=== PATIENT | male | born 1950 | race Caucasian/White ===

== ENCOUNTER 2022-07-12 08:08 | Outpatient (CLI) | payer MEDICARE, OTHER, SELFPAY ==
--- OUTSIDE RECORDS SUMMARY | 2022-07-12 08:12 | XMS_ITS | Encounter Summary ---
:1950 Author Organization [facility] Address [address] [place] [address] Care Team Providers Name Role Phone Unavailable Primary Care Provider Unavailable Encounter Details Date Type Department Care Team Description 12/20/2020 Ancillary Procedure Department of Dental Specialties Social History Tobacco Use Types Packs/Day Years Used Date Smoking Tobacco: Never Smokeless Tobacco: Never Alcohol Habits Answer Date Recorded How often do you have a drink containing alcohol? Monthly or less 02/25/2021 How many drinks containing alcohol do you have on a Patient refused 02/25/2021 typical day when you are drinking? How often do you have six or more drinks on one Patient refu sed 02/25/2021 occasion? Comment: Not asked Social Isolation Answer Date Recorded In a typical week, how many times do you More than three vania es a week 02/25/2021 talk on the phone with family, friends, or neighbors? How often do you get together with friends More than three t imes a week 02/25/2021 or relatives? How often do you attend tenriism or Never 2020 roman catholic services? Do you belong to any clubs or No 02/25/2021 organizations such as tenriism groups, unions, fraternal or athletic groups, or school groups? How often do you attend meetings of the Never 02/25/2021 clubs or organizations you belong to? Are you now , , , 02/25/2021 , never or living with a partner? Physical Activity Answer Date Recorded On average, how many days per week do you engage in moderate 0 days 02/25/2021 to strenuous exercise (like walking fast, running, jogging, dancing, swimming, biking, or other activities that cause a light or heavy sweat)? On average, how many minutes do you engage in exercise at th is 150+ min 02/25/2021 level? Stress Answer Date Recorded Do you feel stress - tense, restless, nervous, or Only a lit tle 02/25/2021 anxious, or unable to sleep at night because your mind is troubled all the time - these days? Financial Resource Strain Answer Date Recorded How hard is it for you to pay for the very basics like Not h eugene at all 02/25/2021 food, housing, medical care, and heating? Food Insecurity Answer Date Recorded Within the past 12 months, you worried that your food would Never true 02/25/2021 run out before you got money to buy more. Within the past 12 months, the food you bought just didn't N ever true 02/25/2021 last and you didn't have money to get more. Transportation Needs Answer Date Recorded In the past 12 months, has lack of transportation kept you f rom No 02/25/2021 medical appointments or from getting medications? In the past 12 months, has lack of transportation kept you f rom No 02/25/2021 meetings, work, or getting things needed for daily living? Housing Stability Answer Date Recorded In the last 12 months, was there a time when you were not ab le No 02/25/2021 to pay the mortgage or rent on time? In the last 12 months, how many places have you lived? 1 02/25/2021 In the last 12 months, was there a time when you did not hav e a No 02/25/[address] or slept in a long term (including now)? Education Answer Date Recorded What is the highest level of school Master's degree (e.g., M A, MS, 11/02/2020 you have completed or the highest Rimma, MEd, JAVASCRIPT FRONT END DEVELOPER, KIMBERLYN) degree you have received? 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 documented in this encounter Results Face, Mouth-Dental Image Exam (12/20/2020 12:00 AM ENTRY LEVEL WEB DEVELOPER) Specimen (Source) Anatomical Location Collection Method / Collectio n Time Received Time / Laterality Volume Narrative IIMS - 12/21/2020 8:58 AM ENTRY LEVEL WEB DEVELOPER This order has been created and auto-finalized to support the import of images acquired without order. The clini milton documentation to support these images can be found on the encounter jeannine t produced images. Provider Not In System IMG NON RAD IMAGING PROCEDUR ES Performing Organization Address City/State/ZIP Code Phon e Number IIMS IIMS NA documented in this encounter Visit Diagnoses Not on filedocumented in this encounter
--- OUTSIDE RECORDS SUMMARY | 2022-07-12 08:12 | XMS_ITS | Encounter Summary ---
:1950 Author Organization [facility] Address [address] [place] [address] Care Team Providers Name Role Phone Unavailable Primary Care Provider Unavailable Reason for Visit Outpatient (Routine) - Closed Specialty Diagnoses / Procedures Referred By Contact Refer red To Contact Dentistry / Dental Diagnoses [facility]nea [facility] Tonya Hare M.D. [address] [place] [address] Referral ID Status Reason Start Date Expiration Date Visits Requ ested Visits Authorized [id number] Closed 09/20/2020 09/20/2021 1 1 Encounter Details Date Type Department Care Team Description 11/09/2020 Telemedicine Department of Dental Frandy, [place], Apnea S leep Specialties in [place], M.S. Obstructive [place], [place] [address] [facility] [address] [place] [phone] Social History Tobacco Use Types Packs/Day Years [...] or relatives? How often do you attend sikh or Never 2020 restoration services? Do you belong to any clubs or No 02/25/2021 organizations such as sikh groups, unions, fraternal or athletic groups, or [...] minutes do you engage in exercise at is 150+ min 02/25/2021 level? Stress Answer [...] place to sleep or slept in a fpc (including now)? Education Answer Date Recorded What is the highest level of school Master's degree (e.g., M A, MS, 11/02/2020 you have completed or the highest Rimma, MEd, REVENUE STAMPER, KIMBERLYN) degree you have received? 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 - 11/09/2020 3:00 PM CST Today's visit was completed as a video telemedicine visit, from the Department of Dental Specialties, [place], [place], by Dr. Courtney Wise, by contacting Mr. Huang at his home. SUBJECTIVE REASON FOR CONSULT Mr. Kishor Huang Jr. is a 70 y.o. male patient referred by Dr. Ralu Lynn from [facility], in consideration for the use of a Mandibular Advancement Device in the management of Obstructive Sleep Apnea. HISTORY OF PRESENT ILLNESS Mr. Huang was diagnosed with Obstructive Sleep Apnea following the evaluation and assessment with a Polysomnogram completed on 09/20/2017. . Mr. Huang is intolerant of CPAP due to not finding a comfortable mask. Mr. Huang reports comorbidities of Atrial Fibrillation. SLEEP HISTORY Based on the Polysomnogram, Mr. Huang's AHI was 13, RDI was 14.6, lowest oxygen desaturation was 88%. The reason for obtaining a sleep evaluation was snoring and concurrent health concerns. Mr. Huang has not undergone prior jaw surgery. Mr. Huang does not report difficulty breathing due to nasal obstruction, although does report a history of deviated septum diagnosis. DENTAL HISTORY The patient routinely visits a general dentist, Dr. Sanchez, every six months. Mr. Huang currently has no dental problems. Mr. Huang does not anticipate future dental work. Mr. Huang is aware of teeth clenching and teeth grinding habits. Mr. Huang reports to be using a mouth guard. Mr. Huang reports not gagging easily. The patient does not report a history of jaw pain and TMJ symptoms. ASSESSMENT / PLAN #1 Apnea Sleep Obstructive Based on the evaluation today, no overt subjective contra-indications for the use of Mandibular Advancement Device could be identified at this time. Therefore, I have requested Mr. Huang to return to for a face to face visit where-in a Comprehensive Oral Examination would be performed. After completion of the exam, if once again, no obvious contra-indications were identified, Diagnostic Radiographs, Digital Dental Impressions and Photographic records would be obtained to proceed with the fabrication of the Mandibular Advancement Device. During today's visit, the overall risks and benefits with the use of the Mandibular Advancement Device was reviewed. The device???s mechanism of action and the potential limits of its effectiveness were also reviewed. Regarding the risks associated with its use, temporary but the potential occurrence of temporomandibular joint disorder-like symptoms, tooth discomfort, dry mouth status and risk with exacerbating sub-clinical dental pathology were also discussed. The potential for malocclusion as a side effect from the device was also reviewed. Mr. Huang acknowledged an understanding of this. I visually demonstrated, using a sample device, the adjusting screw system, the customized device components and the mechanism of action for the Mandibular Advancement Device. After the completion of device placement and titration of the device adequately to the patient???s comfort and subjective improvement, Mr. Huang would be encouraged to return to the Center [facility] to consider a sleep test, per the Sleep Physician's discretion, to evaluate the effectiveness of the Mandibular Advancement Device. Additionally, today, I reviewed clinical notes from Tonya Maldonado M.D., Sleep Study report, and other relevant documents in his Electronic Health Record, as part of his visit. Total visit time 30 minutes. Counselling and coordinating care > 50% time. CLEANER OPERATOR documented in this encounter Plan of Treatment Not on filedocumented as of this encounter Visit Diagnoses Diagnosis Apnea Sleep Obstructive documented in this encounter
--- OUTSIDE RECORDS SUMMARY | 2022-07-12 08:12 | XMS_ITS | Encounter Summary ---
:1950 Author Organization [facility] Address [address] [place] [address] Care Team Providers Name Role Phone Unavailable Primary Care Provider Unavailable Reason for Referral Outpatient (Routine) - Closed Specialty Diagnoses / Procedures Referred By Contact Refer red To Contact Dermatology Diagnoses Obstructive Sleep Apnea Adult Courtney Wise D.D.S., M.S. [facility] Procedures Photography - Medical [address] [place] [address] Referral ID Status Reason Start Date Expiration Date Visits Requ ested Visits Authorized [id number] Closed 12/20/2020 12/20/2021 1 1 R VEHICLE REPRESENTATIVE Reason for Visit Reason Comments Dental Sleep Medicine Consultation PES Encounter Details Date Type Department Care Team Description 12/20/2020 Comprehensive Visit Department of Yareli Wise tinicki Sleep Apnea Adult (Primary Dx); Dental Specialties Courtney, Articular Disc Disorder Of Right Temporomandibular [facility] [address] [facility] [address] [facility] [phone] [facility] [phone] [place] [phone] Social History Tobacco Use Types Packs/Day Years [...] or relatives? How often do you attend scientology or Never 2020 muslim services? Do you belong to any clubs or No 02/25/2021 organizations such as scientology groups, unions, fraternal or athletic groups, or [...] place to sleep or slept in a care home (including now)? Education Answer Date Recorded What is the highest level of school Master's degree (e.g., M Devante, MS, 11/02/2020 you have completed or the highest Rimma, MEd, TIME RECORDER, KIMBERLYN) degree you have received? 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 - 12/20/2020 10:00 AM CST SUBJECTIVE REASON FOR CONSULT Mr. Kishor Huang Jr. is a 70 y.o. male patient referred by Dr. Raul Lynn from [facility], in consideration for the use of a Mandibular Advancement Device in the management of Obstructive Sleep Apnea. The reason for today's visit was to proceed with radiographic evaluation, comprehensive oral examination and dental impressions and bite registration for the fabrication of a Mandibular Advancement Device. OBJECTIVE PHYSICAL EXAMINATION Maximum interincisal opening of 45 mm, right excursion of 12 mm and left excursion of 12 mm. Teeth mobility is not noted. There is a normal range of motion to the temporomandibular joints. Palpation oftemporomandibular joints and muscles of mastication revealed no tenderness. Temporomandibular joint noise of reciprocal clicking was noted on the right side with extreme excursive jaw movements, which Mr. Huang reported to be only deliberately activated instead of during normal function. The neck exhibits negative lymphadenopathy. The intraoral soft tissue evaluation is negative for pathology, including buccal mucosa, gingiva, floor of mouth, dorsal, lateral, ventral surface of the tongue, hard and soft palates. Dentition reveals >8 teeth in the maxilla and >8 teeth in the mandible. Occlusal evaluation reveals stable bilateral posterior contacts and anterior normal relationshipwith 6 mm vertical and 5 mm horizontal overlap. Mallampati Class III palatal anatomy was noted with increased thickness of the alveolar ridge horacio palatal aspect of the ridge appearing like an exostoses, high and vaulted appearing hard palate, mucosal ridging along the lateral borders of the tongue. Teeth contact noted to be generalized. There is no evidence of caries requiring local dentist attention, and no evidence of periodontal concerns. Dental attrition is severe with significant anterior teeth wear.. DIAGNOSTICS A Panoramic radiograph taken by the local dentist and obtained on 10/18/2020, revealed bilateral adaptive remodeling of thecondylar contours, no bony pathology. Sinus appears clear. 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 I reviewed with Mr. Huang the mechanism by which the MAD reduces the risk for upper airway collapsibility by advancing the mandible. The risks and benefits with the use of the MAD were reviewed in detail. Specifically, the risk of developing self-limiting mild TMJ disorder, initially increased and later reduced salivary flow, the risk for teeth mobility, the risk with aggravating previously weakened dental restorations, the 30-40% probability of developing irreversible occlusal changes were reviewed. Concerns regarding the integrity of anterior restorations in #8, 9 region was reviewed and the MAD design would be accommodated that is most risk-aversive for the hindu's prognosis. After the initial fitting and establishing patient comfort with the MAD use, Mr. Huang would be encouraged to return to the Sleep Physician for the subjective and objective evaluation of the MAD's effectiveness in managing the symptoms of Obstructive Sleep Apnea. Mr. Huang will be directed to the Sleep Physician for further management of sleep-related breathing disorder. At the time of MAD insert, the method to self-titrate the device to optimal mandibular protrusion will be reviewed with Mr. Huang. Mr. Huang expressed an understanding of the content. The patient was ready to begin therapy, therefore maxillary and mandibular impressions were obtainedthis visit. Measurement of patient's protrusive range of motion was achieved with a Gauge -6 to +5. Gauge position 0. A SomnoDent [place] Flex will be ordered and inserted at next visit. R VEHICLE REPRESENTATIVE documented in this encounter Plan of Treatment Scheduled Orders Name Type Priority Associated Diagnoses Order S chedule Photography - Medical Procedures Routine Obstructive Sleep A pnea Expected: Adult 12/20/2020, Exp ires: 12/20/2023 documented as of this encounter Procedures Procedure Name Priority Date/Time Associated Diagnosis Comme nts IMPRESSION Routine 12/20/2020 10:00 AM MOTOR VEHICLE REPRESENTATIVE Obstructive Sleep Apnea Adult documented in this encounter Visit Diagnoses Diagnosis Obstructive Sleep Apnea Adult - Primary Articular Disc Disorder Of Right Temporo mandibular Joint documented in this encounter
--- OUTSIDE RECORDS SUMMARY | 2022-07-12 08:12 | XMS_ITS | Encounter Summary ---
:1950 Author Organization [facility] Address [address] [place] [address] Care Team Providers Name Role Phone Unavailable Primary Care Provider Unavailable Reason for Visit Reason Onset Date Comments Testing For Upper Respiratory Virus Symptoms 01/23/2021 Encounter Details Date Type Department Care Team Description 01/23/2021 External Outreach Department of Tony Rooney And Internal Medicine in [place] (Suspected) Exposure [place], [place] [address] To COVID-19 (Primary [address] [place], [place] Dx) [place] [phone] Social History Tobacco Use Types Packs/Day Years [...] or relatives? How often do you attend religious or Never 2020 moravian services? Do you belong to any clubs or No 02/25/2021 organizations such as religious groups, unions, fraternal or athletic groups, or [...] place to sleep or slept in a group home (including now)? Education Answer Date Recorded What is the highest level of school Master's degree (e.g., M Devante, MS, 11/02/2020 you have completed or the highest Rimma, MEd, CLEANING CREW MEMBER, KIMBERLYN) degree you have received? 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 - 01/23/2021 8:45 AM CDT Encounter created for symptomatic infectious disease screening with possible COVID, Influenza, RSV, and/or Group A Strep testing. documented in this encounter Plan of Treatment Not on filedocumented as of this encounter Visit Diagnoses Diagnosis Contact With And (Suspected) Exposure To COVID-19 - Primary documented in this encounter Additional Health Concerns Infection Onset Date Last Indicated Resolved Time COVID19 Pending 01/22/2021 01/23/2021 01/23/2021 8:37 PM CDT documented as of this encounter
--- OUTSIDE RECORDS SUMMARY | 2022-07-12 08:12 | XMS_ITS | Encounter Summary ---
:1950 Author Organization [facility] Address [address] [place] [address] Care Team Providers Name Role Phone Unavailable Primary Care Provider Unavailable Reason for Referral Outpatient (Routine) - Closed Specialty Diagnoses / Procedures Referred By Contact Refer red To Contact Sleep Medicine Courtney Wise D.D.S., Tonya Mclaughlin M.S. M.D. [address] [place] [address] [address] [place] [address] [place] [address] Phone: Fax: Referral ID Status Reason Start Date Expiration Date Visits Requ ested Visits Authorized [id number] Closed 03/01/2021 03/01/2022 1 1 Encounter Details Date Type Department Care Team Description 03/01/2021 Telemedicine Department of Dental Courtney Wise, Obstrkiran tive Sleep Specialties in [place], M.S. Apnea Adult (Primary [place], [place] [address] [facility] Dx) [address] [place] [phone] Social History Tobacco Use Types Packs/Day Years [...] or relatives? How often do you attend advent or Never 2020 faith services? Do you belong to any clubs or No 02/25/2021 organizations such as advent groups, unions, fraoDesk or athletic groups, or school groups? How [...] place to sleep or slept in a intermediate (including now)? Education Answer Date Recorded What is the highest level of school Master's degree (e.g., Isaiah Low, MS, 11/02/2020 you have completed or the highest Rimma, MEd, PIN STICKER, KIMBERLYN) degree you have received? 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 - 03/01/2021 1:00 PM CDT Today's visit was completed as a video telemedicine visit, from the Department of Dental Specialties, [place], [place], by Dr. Courtney Wise, by contacting Mr. Huang at his home. SUBJECTIVE Mr. Kishor Huang Jr. presented today for a review of the use of the Mandibular Advancement Device. He has advanced it by 4 mm overall since the time of initial insertion. The current setting is at85% of maximum protrusive range for patient. He does report moderate persistent snoring with the device. He reports that his sleep feels restful with the device in use. Mr. Huang does not report jaw pain, jaw joint noises and persistent occlusal changes as side effects with device use. He does not report functional limitations with respect to chewing, speech or swallowing with the device use. ASSESSMENT / PLAN #1 Obstructive Sleep Apnea Adult Based on the evaluation today additional titration is recommended by 1 mm. Following that adjustmenthowever, the device protrusive setting would be near his maximum protrusive range and therefore no further adjustment would be recommended beyond that setting. I encouraged Mr. Hunag to return to the [facility] to consider an objective assessment of the effectiveness of the device in managing her sleep-related breathing disorder. Based on therecommendations from the Center for [facility], additional titration may be considered. Total visit time 20 minutes, counselling and coordinating care > 50% time. documented in this encounter Plan of Treatment Scheduled Referrals Name Type Priority Associated Diagnoses Order S chedule Return to provider Outpatient Referral Routine Ex pected: in another 03/01/2021 specialty (Approximate), Expires: 03/01/2024 documented as of this encounter Procedures Procedure Name Priority Date/Time Associated Diagnosis Comme nts CHECK Routine 03/01/2021 1:00 PM CDT Obstructive Sleep Apnea Adult documented in this encounter Visit Diagnoses Diagnosis Obstructive Sleep Apnea Adult - Primary documented in this encounter
--- OUTSIDE RECORDS SUMMARY | 2022-07-12 08:12 | XMS_ITS | Encounter Summary ---
:1950 Author Organization [facility] Address [address] [place] [address] Care Team Providers Name Role Phone Unavailable Primary Care Provider Unavailable Encounter Details Date Type Department Care Team Description 07/08/2019 [facility] Remarco, Mckeon Fibrillation Atrial AND DERECK Trammell M.D. (HCC) (Primary Dx) [address] [facility] [address] [place] [address] [phone] Social History Tobacco Use Types Packs/Day Years Used Date Smoking Tobacco: Never Alcohol Habits Answer Date Recorded [...] or relatives? How often do you attend yazidi or Never 2020 mu-ism services? Do you belong to any clubs or No 02/25/2021 organizations such as yazidi groups, unions, fraternal or athletic groups, or [...] place to sleep or slept in a fci (including now)? 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
--- OUTSIDE RECORDS SUMMARY | 2022-07-12 08:12 | XMS_ITS | Encounter Summary ---
:1950 Author Organization [facility] Address [address] [place] [address] Care Team Providers Name Role Phone Unavailable Primary Care Provider Unavailable Encounter Details Date Type Department Care Team Description 01/23/2021 Lab Department of [facility] Courtney Wise, Contact With And (Suspected) Exposure To COVID-19; [facility] [place], [facility] Ayan, M.S . Encounter For Preprocedural Laboratory E xamination (COVID-19) [facility], in [place] [address] [place], [place] [address] [facility] [address] [place] [address] [facility] [phone] Social History Tobacco Use Types Packs/Day Years [...] do you attend scientology or Never 2020 scientology services? Do you belong to any clubs [...] place to sleep or slept in a longterm (including now)? Education Answer Date Recorded What is the highest level of school Master's degree (e.g., M A, MS, 11/02/2020 you have completed or the highest Rimma, MEd, [employer]ACH[employer], KIMBERLYN) degree you have received? 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 Preprocedural Laboratory Examination (COVID-19) documented in this encounter Results SARS Coronavirus-2 RNA, V Asymptomatic (01/23/2021 8:51 AM CDT) [facility] Method Time Signature SARS-CoV-2 Swab, 01/23/2021 MKTO Specimen Nasopharynx 8:36 PM CDT Source SARS CoV-2 Undetected Undetected 01/23/2021 MKTO RNA, TMA 8:36 PM CDT Comment: SARS-CoV-2 RNA absent. This result does not rule out COVID-19 in the patient, as the sensitivity of the test depends o n the timing of the specimen collection and the quality of the specim en. Result should be correlated with patient's history and clinical presentat ion. ----ADDITIONAL INFORMATION---- This molecular amplification test was pe rformed using the Aptima SARS-CoV-2 assay ([employer] on the Mister Bells tem under emergency use authorization (EUA) by the U.S. Food and Drug Administ ration. Fact sheets for this EUA assay can be fo und at the following links: For Healthcare Providers: https://www.fd a.gov/media/864390/download For Patients: https://www.fda.gov/media/ 062259/download Specimen Anatomical Collection Method Collection Time Receive d Time (Source) Location / / Volume Laterality Varies 01/23/2021 8:51 AM 3:31 (Nasopharynx) CDT PM CDT Courtney Wise D.D.S., M.S. LAB MICROBIOLOGY - GENERAL O RDERABLES Performing Organization Address City/State/ZIP Code Phon e Number [facility] [address] [place] [address] [place] [address] System in [place] [address] [facility] documented in this encounter Visit Diagnoses Diagnosis Contact With And (Suspected) Exposure To COVID-19 Encounter For Preprocedural Laboratory E xamination (COVID-19) documented in this encounter Additional Health Concerns Infection Onset Date Last Indicated Resolved Time COVID19 Pending 01/22/2021 01/23/2021 01/23/2021 8:37 PM CDT documented as of this encounter
--- OUTSIDE RECORDS SUMMARY | 2022-07-12 08:12 | XMS_ITS | Encounter Summary ---
:1950 Author Organization [facility] Address [address] [place] [address] Care Team Providers Name Role Phone Unavailable Primary Care Provider Unavailable Reason for Referral Outpatient (Routine) - Closed Specialty Diagnoses / Procedures Referred By Contact Refer red To Contact Dentistry / Dental Diagnoses Apnea Sleep Obstructive [facility] Specialties Tonya Hare M.D. [address] [place] [address] Referral ID Status Reason Start Date Expiration Date Visits Requ ested Visits Authorized [id number] Closed 09/20/2020 09/20/2021 1 1 PROJECT MANAGER Reason for Visit Outpatient (Routine) - Closed Specialty Diagnoses / Procedures Referred By Contact Refer red To Contact Sleep Medicine Diagnoses Apnea Sleep Obstructive Mike Higginbotham [place] M.D. [address] [place] [address] Referral ID Status Reason Start Date Expiration Date Visits Requ ested Visits Authorized [id number] Closed 07/20/2020 07/20/2021 1 1 Encounter Details Date Type Department Care Team Description 09/20/2020 Comprehensive Visit [facility] Mcmullen ea Sleep Obstructive (Primary Dx); Medicine in y, Tonya Hare, Atrial Fibrilla tion (HCC) [place], [place] [facility] [address] [place] [phone] Social History Tobacco Use Types Packs/Day Years [...] or relatives? How often do you attend hinduism or Never 2020 holiness services? Do you belong to any clubs or No 02/25/2021 organizations such as hinduism groups, unions, fraternal or athletic groups, or [...] or slept in a fpc (including now)? 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 - 09/20/2020 10:00 AM CST SUBJECTIVE REASON FOR CONSULT Obstructive sleep apnea HISTORY OF PRESENT ILLNESS Mr. Huang is a pleasant 70 y.o. male with a past medical history significant for obstructive sleepapnea with an AHI of 11, and AFib status post ablation on 06/14/2020 who is seen by request of Mike Higginbotham M.D. for obstructive sleep apnea. The history was obtained from the patient. He underwent a polysomnogram on 05/17/2008, which showed an AHI of 11. He was started on treatment with CPAP. We also have records from another sleep study in the hospital on 09/20/2017 at a body mass index of 29.7, which showed a total sleep time of 207 minutes with an AHI of 13. The AHI during REM was 60 and the supine AHI was 33.9. The nonsupine AHI was 6.5 when not in REM, but was elevated to 50.9 during REM sleep. The RDI was 14.6. 12.5 minutes were spent at an oxygen saturation of 88% or less. Echocardiogram from 02/04/2019 showed a preserved ejection fraction of 60-65% with a normal right ventricle. He typically goes to bed at 11:00 p.m. and wakes up between 8 and 930. He gets approximately 8 hoursof sleep per night. He does not nap. He does not have problems falling asleep at night. He wakes up once to use the restroom but can usually fall back to sleep. There are no symptoms of restless legs, no parasomnias and no dream enactment. [place] Sleepiness Scale is 3. He does not feel excessively sleepy during the daytime. He denies morning headache, has an occasional dry mouth or sore throat in the morning. He snores every night, it is somewhat loud, and it is louder on his back. He prefers to sleep on his back. He has been told that he stops breathing during sleep. He says that he does wake up with a snort, choking sensation or shortness of breath. He has a deviated septum, which causes some nasal congestion. He has not had surgery on the upper airway. He denies heartburn. He currently uses CPAP occasionally and is not happy with this therapy. His primary purpose in presenting to this appointment today is to see what other options there may be for the treatment of his sleep apnea. He does notice that he has some periodic fast heart rate at night and so he wonders if it may be beneficial totreat his sleep apnea from the standpoint of his atrial fib/flutter. Family history: Nothing pertinent Social history: 2 cups of coffee a day, no drugs, never smoker I reviewed a download from his machine from [phone]. He is set at a pressure of 7-12 cm H2O. Median pressure is 10.6 and 95th percentile pressure is 11.9. Median leak is 8.4 liters/minute witha 95th percentile leak of 13.2 liters/minute. Residual AHI is 5.1 with most of the events being obstructive apneas and hypopneas. Median daily usage is 7 hours 41 minutes. Use over the last 90 days hasbeen intermittent. The following portions of the patient's history were reviewed and updated as appropriate: allergies,current medications, family history, medical history, social history, surgical history and problem list. REVIEW OF SYSTEMS Constitutional: Negative for fatigue. ENT: Positive for sinus congestion. Respiratory: Positive for sleep disturbances due to breathing. Negative for dyspnea. Cardiovascular: Positive for swelling in the legs or feet. Negative for chest pain, pressure or tightness and rapid or fluttering heart beat. Neurological: Negative for excessive daytime sleepiness and headaches. Psychiatric/Behavioral: Positive for snores loudly, stop breathing, choking, or gasping while asleepand sleep disturbance. Negative for excessive daytime sleepiness/tiredness. OBJECTIVE PHYSICAL EXAM General Multi-System Examination (GME) Constitutional: General appearance no acute distress. Eyes: Conjunctivae and lids normal. Pupils and irises normal. Ears, Nose Mouth and Throat: Oropharynx demonstrates quite narrow lateral diameter, mildly narrowed AP diameter. Jaw position is Hanks 4. External inspection of ears and nose normal. Lips, teeth, and gums normal. Lymph: No abnormal lymphadenopathy in neck or supraclavicular region. Neck: Normal. Neck circumference 47 cm. Thyroid normal. Heart: Auscultation of heart normal. No ankle edema. No carotid artery bruits. Lungs: Respiratory effort normal. Auscultation of lungs normal. Musculoskeletal: Gait normal. Digits and nails normal. Mental: Judgement and insight normal. Orientation normal. Memory normal. Mood normal. ASSESSMENT / PLAN #1 Obstructive sleep apnea #2 Deviated nasal septum with chronic nasal congestion #3 Atrial fibrillation Although it seems that his sleep apnea is relatively well controlled on his current CPAP settings, he really does not like sleeping with CPAP. He has also tried many different masks and has not been able to find 1 that he is happy with despite trying all of the different mask styles. He said that he would prefer to treat his sleep apnea in some way that did not involve CPAP. We spent some time discussing the possibility of having surgery on his deviated nasal septum so thatit would perhaps be more comfortable to tolerate CPAP and we also talked about the different sleep surgeries including soft tissue surgery in the maxilla mandibular advancement surgery. We also discussed the mandibular advancement device, or the oral appliance, as an option. I showed him some pictures of each of these and discussed them in detail. For now, he prefers to see our sleep dentist in order to discover if the mandibular advancement device would potentially be a good option for treatment of his obstructive sleep apnea. I will leave follow-up with me open at this time. I let him know that if he goes through with obtaining the mandibular advancement device, that either I or his sleep doctor at home should perform some sort of follow-up testing to make sure that the sleep apnea is under good control. If he does not endup getting the oral appliance and would like to be referred to ENT surgery for consideration of surgical options to treat his sleep apnea, then I would provide him with that consultation. I gave him my card and asked him to contact me and let me know what he decides and if he needs follow-up with our sleep center. Tonya Maldonado MD Will Call Order Clerk Industrial Eng Pulmonary/Sleep Medicine #[id number] 45 minutes were spent in the care and coordination of this patient visit with greater than 50% spentin [id number] counseling. PATIENT EDUCATION Ready to learn, no apparent learning barriers were identified; learning preferences include listening. Explained diagnosis and treatment plan; patient expressed understanding of the content. PROJECT MANAGER documented in this encounter Plan of Treatment Scheduled Referrals Name Type Priority Associated Diagnoses Order S [facility] Dental Specialties - Outpatient Referral Routine Apnea Sleep Expected: Sleep medicine Obstructive 09/20/2020 consult (clinic) (Approximat e), Expires: 09/20/2023 documented as of this encounter Visit Diagnoses Diagnosis Apnea Sleep Obstructive - Primary Atrial Fibrillation (HCC) documented in this encounter
--- OUTSIDE RECORDS SUMMARY | 2022-07-12 08:12 | XMS_ITS | Encounter Summary ---
:1950 Author Organization [facility] Address [address] [place] [address] Care Team Providers Name Role Phone Unavailable Primary Care Provider Unavailable Encounter Details Date Type Department Care Team Description 08/10/2020 Clinical Communication Division of Pulmonary Georgi funes, Medicine in [place], Isaiah Moreira [place] [address] [address] [facility] [address] [place] [address] [phone] Social History Tobacco Use Types Packs/Day Years [...] or relatives? How often do you attend denominational or Never 2020 judaism services? Do you belong to any clubs or No 02/25/2021 organizations such as denominational groups, unions, fraternal or athletic groups, or [...] place to sleep or slept in a alf (including now)? 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 Is the patient requesting a COVID test only or other appointments? Other Appointments 2. Have you tested positive for COVID-19 in the last 30 days or do you have a pending COVID-19 test because you had symptoms? No, had a test at [facility] 2 weeks ago and it was negative 3. In the last 14 days have you had close contact with a lab confirmed positive case of COVID-19 (close contact is defined as a household case of COVID or being within 6 feet of a COVID-19 patient for more than 5 minutes or having direct contact with infectious secretions, e.g., being coughed on)? no 4. In the past 14 days, are any of the following symptoms new to you and not related to an existing health condition? a. Fever greater than or equal to 37.8 C (100.0 F)? no b. New symptoms (Specifically: headache, cough, shortness of breath, respiratory distress, sore throat, diarrhea, nausea, vomiting, chills and repeated shaking with chills, myalgia's (muscle aches), loss of smell, or change or loss of taste sensation)? no 5. Are you having NEW trouble breathing, worsening breathing, or feeling as though you're going to collapse when you stand or sit up? no 6. Have you tested positive for COVID in the last 90 days? no Route reply to: [facility] Scheduling Contact Number: [phone] documented in this encounter Plan of Treatment Not on filedocumented as of this encounter Visit Diagnoses Not on filedocumented in this encounter
--- OUTSIDE RECORDS SUMMARY | 2022-07-12 08:12 | XMS_ITS | Encounter Summary ---
:1950 Author Organization [facility] Address [address] [place] [address] Care Team Providers Name Role Phone Unavailable Primary Care Provider Unavailable Reason for Visit Reason Comments Dental Return Visit insert sleep appliance Encounter Details Date Type Department Care Team Description 01/26/2021 Office Visit Department of Dental Frandy, Courtney, Obstruc tive Sleep Specialties in [place]., M.S. Apnea Adult (Primary [place], [place] [address] [facility] Dx) [address] [place] [id number] [phone] Social History Tobacco Use Types Packs/Day Years [...] or relatives? How often do you attend latter day or Never 2020 jewish services? Do you belong to any clubs or No 02/25/2021 organizations such as latter day groups, unions, fraternal or athletic groups, or [...] place to sleep or slept in a jail (including now)? Education Answer Date Recorded What is the highest level of school Master's degree (e.g., Isaiah Low MS, 11/02/2020 you have completed or the highest Rimma, MEd, SOURCING INTERN, KIMBERLYN) degree you have received? 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 - 01/26/2021 2:00 PM CDT Images from the original note were not included. Dental Sleep Appliance Video Please review the following instructional video related to Advancing Your Viktor Telescopic Sleep Appliance: [email or web address]-[email or web address] For patient and family use only. Do not place link on websites or share publicly. Instructions for advancement of oral sleep appliances Please use the following chart to monitor the advancement of your SomnoDent [place] Flex appliance. Your appliance has already been advanced 4turns by your provider. On week 3 you will begin to advance your appliance according to the chart below. Please refer to the video that we have sent to you on how to advance your appliance. On week 4, you will have a video visit with your Dental Sleep Team at which time you will discuss your progress and how much further to advance Week Instructions 1 01/26/21 Get used to wearing your appliance. 2 02/02/2021 Wear your appliance all night long, every night. 3 02/09/2021 Start advancing your appliance by 8 turns on both sides. 4 02/16/2021 Video visit with Dental Sleep team Advance your appliance by 8 turns on both sides. You will have a video visit with your Dental Sleep Team. 5 02/23/2021 Do not advance anymore unless instructed to do so 6 03/02/2021 7 03/09/2021 8 03/16/2021 Patient Education Your Oral Appliance Therapy (OAT) Your appliance __??SomnoDent??? Classic __??SomnoDent??? Flex __??SomnoDent Viktor??? with telescopic arms _x_??SomnoDent Viktor??? Flex with telescopic arms __??SID??? with shims __??Silent Nite??? __??Other _x_??Elastics Elastics are rubber bands that attach the upper and lower portions of an appliance together. They can give more stability to the appliance. If you sleep on your back most of the time and your mouth tends to fall open, you likely will benefit from using elastics. You can attach elastics to the appliance when the appliance is in your mouth or out of your mouth. Use new elastics every few days or more often if they lose their elasticity. Tell your dental care team when you need more elastics. They can be mailed to you. Cleaning your teeth and appliance Before you wear your appliance, brush and floss your teeth. After you wake up: 1. Remove the appliance from your mouth. [place] your teeth. 2. Use a soft bristle toothbrush to brush your appliance with lukewarm water. You may use mild, liquid dish soap to clean your appliance. 3. Rinse your appliance with water. 4. Store your appliance in the case provided. One time a week, use a denture stitch cleaner that is safe for plastic and metal appliances to clean your appliance. For best results, take apart your appliance and then soak it in the denture stitch cleaner for five minutes. Placing your appliance 1. Put hot water inside the case holding your appliance. Let your appliance soak in it for 10 to 15 seconds. 2. Wash your hands. Dry them with a clean towel. 3. Remove your appliance from the case. 4. To put in your appliance, financial planning assistant front of a mirror until you are comfortable not using a mirror. 5. Place the upper and lower portions of your appliance in your mouth separately or together as instructed. 6. Center the appliance over your top front teeth. Always seat your top front teeth into the upper portion of your appliance first. 7. Slide your fingers back in your mouth to seat the back part of the appliance onto your upper teeth. 8. Bring your lower jaw forward to seat your lower front teeth into the lower portion of your appliance. 9. Slide your fingers back in your mouth to seat the back part of the appliance onto your bottom teeth. 10. Use your fingers to push up on your upper appliance and down on your lower appliance. Gently squeeze your teeth together to seat the appliance completely. Removing your appliance 1. Wash your hands. Dry them with a clean towel. 2. Always remove your lower appliance first. Place your fingertips or fingernails on both sides of your lower appliance, along your gum line. 3. Push the appliance upward to release it from your teeth. 4. Place your fingertips or fingernails on both sides of your upper appliance, along your gum line. 5. Pull the appliance downward to release it from your teeth. 6. After you remove your appliance from all of your teeth, remove the appliance from your mouth. 7. Clean and store your appliance. When you wear your appliance, it holds your lower jaw forward. That is what it is supposed to do. After you remove the appliance, your bite will feel ???off.?? This is normal. Your bite usually will return to normal within a few minutes to a few hours. If your bite feels ???off,?? try using your bite theater technician for 5 to 10 minutes. Please be aware that bite changes happen in many people who wear an oral appliance over a period of time. If you have questions about this, talk with a member of your dental care team. Getting used to your appliance For the first week, it is important to get used to wearing your appliance. Take it slow. Wear it fora short amount of time several times throughout the day or evening. Increase how long you wear it over the first week. Build up to wearing it so you feel comfortable wearing it all night by the end of the second week. In the beginning, you may have some tooth or jaw pain, more saliva, or a dry mouth when wearing yourappliance. This is normal and should get better as you get used to wearing your appliance. You mightalso feel tooth or jaw pain when you are not wearing the appliance. If you have concerns about this,talk with a member of your dental care team. When you are able to wear your appliance all night, it is important to determine if you notice an improvement in the symptoms you had before starting the appliance. Ask yourself: ?? Am I feeling rested? ?? Am I snoring? ?? Am I feeling sleepy during the day? Returning for follow-up care . After you wear your appliance for four weeks, you will have a video visit with your dental care teamto check your progress before you return to the sleep medicine area. You will be guided to return tothe sleep medicine area at eight weeks. You and your sleep medicine specialist will determine what testing you need to see whether your appliance is working the way it should. Bring your appliance and this information with you when you come for dental or sleep medicine appointments. Advancing your appliance You need to advance your appliance every week to move your lower jaw further forward to help with symptoms. __??SomnoDent Classic _x_??SomnoDent Flex Use the advancing harrison to turn the advancing box on each side of the appliance the same amount. 5 turns = 1/2 mm. Turn the harrison in the direction of the arrow. __??SomnoDent Viktor with telescopic arms __??SomnoDent Viktor Flex with telescopic arms Use the advancing harrison to turn the advancing barrel on both arms of the appliance the same amount. 4 turns = 1/2 mm. Turn the harrison in the direction of the arrow. __??SID with shims Add the same size zohreh to each elian of the lower appliance. Then attach the upper portion of the appliance to the lower portion. Shims range from 1 mm to 5 mm in size. __??Silent Nite Change to the same size arms, attaching lower and upper portions together. Arms decrease in length by 1 mm with each advancement. Contacting your dental care team Contact a member of your dental care team if: ?? The tissues in your mouth become irritated. ?? Your appliance becomes damaged. ?? You feel your appliance is not working for you. ?? You have questions or concerns about your appliance or this information. This material is for your education and information only. This content does not replace medical advice, diagnosis or treatment. New medical research may change this information. If you have questions about a medical condition, always talk with your health care provider. ? 2019 [facility] ([facility]). All rights reserved. [id number] documented in this encounter Progress Notes Courtney Wise D.D.S., M.S. - 01/26/2021 2:00 PM CDT SUBJECTIVE Valeri. Sim Huang Jr. returns for insertion of SomnoDent Viktor Flex Mandibular Advancement Device (MAD), for the management of obstructive sleep apnea. OBJECTIVE Sleep apnea appliance fitted to teeth adequately, patient demonstrated ability to place and remove. ASSESSMENT / PLAN #1 Obstructive Sleep Apnea Adult Today, the patient was provided a receipt for the Mandibular Advancement Device along with the device warranty document. Additionally, a copy of the Durable Medical Equipment Supplier Standards was also provided to the patient. Mr. Huang received instructions regarding placement and removal. The treatment was explained verbally and the placement and removal of the device was demonstrated hands-on with visual guidance on theadjustment mechanism on the device. Specific adjustments to activate forward positioning in separate intervals will be reviewed by my dental marketing administrative assistant at the time of the follow-up visit in two weeks. Mr. Huang is advised to use the appliance nightly over the next two weeks, gradually keeping the appliance in place throughout bedtime. He may begin by using it for short periods of time during the daytime, if unable to tolerate it right away at night time. Overall, the goal is to achieve maximum compliance with comfort of use, over the next two weeks. From its current protrusive position, the MAD may be advanced incrementally by 1mm each week to either a maximum of 2.5 mm or until symptom resolution is noted in-terms of subjective sleep quality, whichever out of the two is achieved first. Mr. Huang expressed an understanding of the content. documented in this encounter Plan of Treatment Not on filedocumented as of this encounter Procedures Procedure Name Priority Date/Time Associated Diagnosis Comme nts INSERT Routine 01/26/2021 2:00 PM CDT Obstructive Sleep Apnea Adult documented in this encounter Visit Diagnoses Diagnosis Obstructive Sleep Apnea Adult - Primary documented in this encounter
--- OUTSIDE RECORDS SUMMARY | 2022-07-12 08:12 | XMS_ITS | Clinical Summary ---
:1950 Author Organization [facility] [place] [address] Care Team Providers Name Role Phone Mike Higginbotham MD Primary Care Provider Allergies Active Allergy Reactions Severity Noted Date Comments Cefuroxime Rash 03/14/2010 Medications Medication Sig Dispensed Refills Start Date End Date Status simvastatin (ZOCOR) 10 Take 1 tablet by 0 10/03/2015 Active mg tablet mouth at bedtime. pantoprazole (PROTONIX) Take 40 mg by 6 09/12/2017 Active 40 mg delayed-release mouth once daily. tablet fluticasone (50 mcg per Daily as needed 0 Active actuation) nasal solution (FLONASE) clonazePAM (KLONOPIN) 1 Take 1 tablet by 0 0 Active mg tablet mouth once daily. [id number] Take by mouth. 0 05/03/2021 Active ng-bosw (Osteo Bi-Flex Triple Strength) 750 mg-644 mg- 30 mg-1 mg tab furosemide (LASIX) 20 Take 1 Tablet (20 0 05/03/2021 Active mg tablet mg) by mouth every morning. metoprolol succinate Take 1 Tablet (25 90 Tablet 3 05/31/2021 Active (Toprol XL) 25 mg mg) by mouth once Sustained-Release daily. tabletIndications: Atrial fibrillation, unspecified type (HC) metoprolol tartrate Take 12.5 mg by 0 09/13/2020 Active (LOPRESSOR) 25 mg mouth. tablet Active Problems Problem Noted Date Paroxysmal atrial fibrillation 07/17/2019 Atrial flutter 03/06/2019 JIN 05/17/2008 AHI-11, positional 01/09/2018 Lumbar facet arthropathy 02/01/2016 Bulging lumbar disc 10/03/2015 Lumbar spinal stenosis 10/03/2015 Lumbar radicular pain 10/03/2015 Tear of medial meniscus of knee 05/24/2009 Knee pain 05/23/2009 Resolved Problems Problem Noted Date Resolved Date Sleep Apnea AHI-11 05/17/2008 06/14/2008 01/09/2018 Encounters Date Type Specialty Care Team Description 07/02/2022 Telephone Bolivar Aragon MD [facility] Enrollment 07/02/2022 Orders Only Bolivar Aragon MD <No scans attached> 06/29/2022 Telephone Bolivar Aragon MD Concerns from Last 3 Months Immunizations Name Administration Dates Next Due Influenza A (H1N1), Inactivated (Age >=3 Years) 11/18/2009 Influenza, IIV3 (Age >=3 years) 11/18/2009, 10/01/2007 Tdap 05/30/2009 Family History Medical History Relation Name Comments Heart Disease Father aneurysm of kelly nary arteries Hypertension Mother Relation Name Status Comments Father Mother Social History Tobacco Use Types Packs/Day Years Used Date Never Smoker Smokeless Tobacco: Never Used Tobacco Cessation: Counseling Given: Yes Alcohol Use Standard Drinks/Week Comments Yes 0 (1 standard drink = 0.6 oz pure alcoho l) rare Sex Assigned at Date Recorded Not on file Obstetrics History Last Filed Vital Signs Vital Sign Reading Time Taken Comments Blood Pressure 119/74 06/07/2021 3:13 PM CDT Pulse 52 06/07/2021 3:10 PM CDT Temperature 36.8 ??C (98.2 ??F) 06/07/2021 3:10 PM CDT Respiratory Rate 16 07/15/2020 5:45 PM CDT Oxygen Saturation 98% 06/07/2021 3:10 PM CDT Inhaled Oxygen Concentration - - Weight 107.3 kg (236 lb 9.6 oz) 06/07/2021 3:10 PM CDT Height 182.5 cm (5' 11.85) 09/13/2020 8:51 AM INFORMATION SYSTEMS ARCHITECT Body Mass Index 32.22 09/13/2020 8:51 AM INFORMATION SYSTEMS ARCHITECT Plan of Treatment Upcoming Encounters Date Type Specialty Care Team Description 09/13/2022 Office Visit Valerie Aragon her MD [facility] [address] [place] [address] (Wo rk) Health Maintenance Due Date Last Done Comments COVID-19 vaccine series (#1) 1950 Depression screening for age 12+ 1962 Hepatitis C screening for age 18-79 1968 Colonoscopy through age 75 1995 Lipids for age 45-75 1995 Zoster (shingles) series for age 50+ 2000 (1 of 2) Medicare Wellness for age 65+ 2015 Pneumococcal series for age 65+ (1 - 2015 PCV) Tetanus booster 05/30/2019 05/30/2009 BMI (ht and wt on same day) for age 1109/13/2021 09/13/2020, 04/29/2020, 18+ 02/01/2016 Influenza for age 65+ 07/05/2022 11/18/2009, 11/18/2009, 10/01/2007 Tdap Completed 05/30/2009 Procedures Procedure Name Priority Date/Time Associated Diagnosis Comme nts EXTENDED HOLTER Routine 07/02/2022 10:51 AM CDT Bradycardia from Last 3 Months Results Not on filefrom Last 3 Months Insurance Payer Benefit Plan / Subscriber ID Effective Dates Phone Addre ss Type Group MEDICARE PART B MEDICARE PART B [id number] 2015-Present ATTN: CLAIMS - HB USE ONLY HB ONLY [address] [place] [address] MEDICA MR MEDICA PRIME [id number] 2019-Present [address] [address] [place] [address] MEDICA MEDICA PRIME [id number] 2019-Present [address] [address] [place] [address] Advance Directives Documents on File Type Date Recorded Patient Simulation Educator Explanati on Power of Overnight Houseperson 12/08/2015 12/08/2015 Healthcare Directive 12/08/2015 12/08/2015 Latest Code Status on File Code Status Date Activated Date Inactivated Comments Full Code 07/15/2020 1:27 PM 07/15/2020 8:08 PM Code Status Discussion: Not Discussed Care Teams Climbing Guide Relationship Specialty Start Date End Date Mike Higginbotham MD PCP - General 09/23/151999 [place] [address]
--- OUTSIDE RECORDS SUMMARY | 2022-07-12 08:12 | XMS_ITS | Encounter Summary ---
:1950 Author Organization [facility] Address [address] [place] [address] Care Team Providers Name Role Phone Unavailable Primary Care Provider Unavailable Encounter Details Date Type Department Care Team Description 01/27/2021 Orders Only [facility] Sa daija Crane M.D. [address] [place], [place] [phone] (Wo rk) Social History Tobacco Use Types Packs/Day Years [...] or relatives? How often do you attend muslim or Never 2020 anabaptism services? Do you belong to any clubs or No 02/25/2021 organizations such as muslim groups, unions, fraternal or athletic groups, or [...] place to sleep or slept in a detention (including now)? Education Answer Date Recorded What is the highest level of school Master's degree (e.g., M Devante, MS, 11/02/2020 you have completed or the highest Rimma, MEd, SALES SUPPORT ASSOCIATE, KIMBERLYN) degree you have received? 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
--- OUTSIDE RECORDS SUMMARY | 2022-07-12 08:12 | XMS_ITS | Clinical Summary ---
:1950 Author Organization [facility] Address [address] [place] [address] Care Team Providers Name Role Phone Unavailable Primary Care Provider Unavailable Source Comments Patient records contain information from all sites at [facility]. For routine questions regarding patient records, call [phone] during business hours, M-F 8:00 AM - 5:00 PM Central Time. Record requests for emergency care only can be directed to [phone] at any time.[facility] Allergies No known active allergies Medications Medication Sig Dispensed Refills Start Date End Date Status simvastatin (ZOCOR) 10 Take 10 mg by 0 10/03/2015 Active mg tablet mouth daily. dilTIAZem Take 120 mg by 0 09/13/2020 Acti ve (TIAZAC/TAZTIA XT) 120 mouth daily. mg ER capsule clonazePAM (KlonoPIN) 1 Take 1 mg by 0 09/13/2020 Active mg tablet mouth daily. metoprolol tartrate Take 12.5 mg by 0 09/13/2020 Active (LOPRESSOR) 25 mg mouth daily. tablet Active Problems Problem Noted Date Apnea Sleep Obstructive 09/20/2020 Atrial Fibrillation 09/20/2020 Social History Tobacco Use Types Packs/Day Years [...] or relatives? How often do you attend restorationism or Never 2020 roman catholic services? Do you belong to any clubs or No 02/25/2021 organizations such as restorationism groups, unions, fraternal or athletic groups, or [...] for the very basics like Not h uegene at all 02/25/2021 food, housing, medical care, [...] or slept in a fci (including now)? Education Answer Date Recorded What is the highest level of school Master's degree (e.g., M A, MS, 11/02/2020 you have completed or the highest Rimma, MEd, MEDIA MANAGER, KIMBERLYN) degree you have received? 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 Last Filed Vital Signs Vital Sign Reading Time Taken Comments Blood Pressure 118/70 09/20/2020 9:34 AM JAVA APPLICATION DEVELOPER Pulse 62 09/20/2020 9:34 AM JAVA APPLICATION DEVELOPER Temperature - - Respiratory Rate - - Oxygen Saturation - - Inhaled Oxygen Concentration - - Weight 110 kg (242 lb 1 oz) 09/20/2020 9:34 AM JAVA APPLICATION DEVELOPER Height 184.5 cm (6' 0.64) 09/20/2020 9:34 AM JAVA APPLICATION DEVELOPER Body Mass Index 32.26 09/20/2020 9:34 AM JAVA APPLICATION DEVELOPER Plan of Treatment Health Maintenance Due Date Last Done Comments CT Colonography 1950 Cologuard 1950 Colonoscopy 1950 Colorectal Cancer Screening 1950 FIT 1950 Hepatitis C Screening 1950 COVID-19 Vaccine (#1) 1950 Zoster Vaccines (2 of 3) 11/17/2012 09/22/2012 DTaP,Tdap,and Td Vaccines (2 - Td 05/30/2019 05/30/2009 or Tdap) Creatinine Level 07/15/2021 07/15/2020 Potassium Level 07/15/2021 07/15/2020 Sodium Level 07/15/2021 07/15/2020 Depression Screening (Annual 11/04/2021 PHQ-2) Fall Risk Screen (Annual) 11/04/2021 Influenza Vaccine (#1) 2022 08/01/2015, 09/22/2012, 08/03/2011, Additional history exists Fasting Glucose for Diabetes 07/15/2023 07/15/2020 Screening Pneumococcal vaccine (65+ years) Completed 01/19/2016, Insurance Payer Benefit Plan / Subscriber ID Effective Phone Address T ype Group Dates MEDICARE MEDICARE A AND [id number] 2015-Prese [address] [place] [address] MEDICA MEDICA PRIME [id number] 2019-Prese [phone] [address] [employer] [address] [place] [address]
--- OUTSIDE RECORDS SUMMARY | 2022-07-12 08:12 | XMS_ITS | Encounter Summary ---
:1950 Author Organization [facility] Address [address] [place] [address] Care Team Providers Name Role Phone Unavailable Primary Care Provider Unavailable Reason for Referral Outpatient (Routine) - Closed Specialty Diagnoses / Procedures Referred By Contact Refer red To Contact Sleep Medicine Diagnoses Apnea Sleep Obstructive Mike Higginbotham [place] M.D. [address] [place] [address] Referral ID Status Reason Start Date Expiration Date Visits Requ ested Visits Authorized [id number] Closed 07/20/2020 07/20/2021 1 1 Encounter Details Date Type Department Care Team Description 07/20/2020 [facility] Mike Higginbotham Apnea Sleep AND CLINICS Yeyo Trammell Obstructive (Primary [address] [facility] [address] [facility]) [place] [address] [place], [place] [phone] Social History Tobacco Use Types Packs/Day Years [...] or relatives? How often do you attend christianity or Never 2020 adventism services? Do you belong to any clubs or No 02/25/2021 organizations such as christianity groups, unions, fraternal or athletic groups, or [...] or slept in a jail (including now)? 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
[2022-07-12 10:17] LABS: Albumin* 4.5 g/dL (3.3-5.0); Chloride* 103 mmol/L (96-114); Potassium* 4.3 mmol/L (3.6-5.1); Sodium* 139 mmol/L (135-149)
[2022-07-12 10:19] LABS: Creatinine* 1.2 mg/dL (0.5-1.5); Estimated Glomerular Filt Rate 64 ml/min
[2022-07-12 10:20] LABS: Alanine Aminotransferase* 51 U/L (4-50); Alkaline Phosphatase* 79 U/L (40-150); Aspartate Amino Transferase* 50 U/L (12-35); Bilirubin Total* 0.7 mg/dL (0.1-1.5); Blood Urea Nitrogen* 23 mg/dL (7-30); Carbon Dioxide* 28 mmol/L (20-32); Glucose* 106 mg/dL (60-115); Total Protein* 7.1 g/dL (6.0-8.3)
== END 2022-07-12 08:09 | disposition home or self-care (01) ==
PROVIDERS: PCP Internal Medicine; Visit Provider Internal Medicine
DX: R60.9 Edema, unspecified (principal); R60.0 Localized edema; I48.92 Unspecified atrial flutter
CPT/HCPCS: 80053; 84443

== ENCOUNTER 2022-07-20 09:48 | Outpatient (CLI) | payer MEDICARE, OTHER, SELFPAY ==
--- OUTSIDE RECORDS SUMMARY | 2022-07-20 09:51 | XMS_ITS | Encounter Summary ---
:1950 Author Organization [facility] Address [address] [place] [address] Care Team Providers Name Role Phone Unavailable Primary Care Provider Unavailable Encounter Details Date Type Department Care Team Description 01/27/2021 Orders Only [facility] Sa daija Crane M.D. [address] [place], [place] [phone] (Wo rk) Social History [...] or relatives? How often do you attend sabianist or Never 2020 pentecostalism services? Do you belong to any clubs or No 02/25/2021 organizations such as sabianist groups, unions, fraternal or athletic groups, or [...] have completed or the highest Rimma, MEd, RESPIRATORY SCIENTIST, KIMBERLYN) degree you have received? 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
--- OUTSIDE RECORDS SUMMARY | 2022-07-20 09:51 | XMS_ITS | Encounter Summary ---
:1950 Author Organization [facility] Address [address] [place] [address] Care Team Providers Name Role Phone Unavailable [...] or relatives? How often do you attend zoroastrianism or Never 2020 scientology services? Do you belong to any clubs or No 02/25/2021 organizations such as zoroastrianism groups, unions, fraternal or athletic groups, or [...] have completed or the highest Rimma, MEd, SENIOR INFORMATION SYSTEMS ARCHITECT, KIMBERLYN) degree you have received? 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 documented in this encounter Results Face, Mouth-Dental Image Exam (12/20/2020 12:00 AM GLOBAL POSITION SYSTEM TECHNICIAN) Specimen (Source) Anatomical Location Collection Method / Collectio n Time Received Time / Laterality Volume Narrative IIMS - 12/21/2020 8:58 AM GLOBAL POSITION SYSTEM TECHNICIAN This order has been created and auto-finalized [...]
--- OUTSIDE RECORDS SUMMARY | 2022-07-20 09:51 | XMS_ITS | Encounter Summary ---
:1950 Author Organization [facility] Address [address] [place] [address] Care Team Providers Name Role Phone Unavailable Primary Care Provider Unavailable Reason for Referral Outpatient (Routine) - Closed Specialty Diagnoses / Procedures Referred By Contact Refer red To Contact Sleep Medicine Courtney Wise D.D.S., Tonya Mclaughlin M.S. M.D. [address] [place] [address] [address] [place] [address] [place] [address] Phone: Fax: Referral ID Status Reason Start Date Expiration Date Visits Requ ested Visits Authorized [id number] Closed 03/01/2021 03/01/2022 1 1 Encounter Details Date Type Department Care Team Description 03/01/2021 Telemedicine Department of Dental Courtney Wise, Obstrkiran tive Sleep Specialties in A[place], M.S. Apnea Adult (Primary [place], [place] [address] [facility] Dx) [address] [place] [phone] Social History Tobacco Use Types Packs/Day Years [...] or relatives? How often do you attend mosque or Never 2020 rastafarian services? Do you belong to any clubs or No 02/25/2021 organizations such as mosque groups, unions, fraYooLotto or athletic groups, or school groups? How [...] place to sleep or slept in a skilled nursing (including now)? Education Answer Date Recorded What is the highest level of school Master's degree (e.g., Isaiah Low, MS, 11/02/2020 you have completed or the highest Rimma, MEd, BEHAVIORAL CONSULTANT, KIMBERLYN) degree you have received? 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 - 03/01/2021 1:00 PM CDT Today's visit was completed as a video telemedicine visit, from the Department of Dental Specialties, [place], [place], by Dr. Courtney Wise, by contacting [...] recommended beyond that setting. I encouraged Mr. Huang to return to the [facility] [...]
--- OUTSIDE RECORDS SUMMARY | 2022-07-20 09:51 | XMS_ITS | Encounter Summary ---
:1950 Author Organization [facility] Address [address] [place] [address] Care Team Providers Name Role Phone Unavailable Primary Care Provider Unavailable Reason for Visit Reason Comments Dental Return Visit insert sleep appliance Encounter Details Date Type Department Care Team Description 01/26/2021 Office Visit Department of Dental Frandy, Courtney, Obstruc tive Sleep Specialties in [place]., M.S. Apnea Adult (Primary [place], [place] [address] [facility] Dx) [address] [place] [address] [phone] Social History Tobacco Use Types Packs/Day Years [...] or relatives? How often do you attend cheondoism or Never 2020 holiness services? Do you belong to any clubs or No 02/25/2021 organizations such as cheondoism groups, unions, fraternal or athletic groups, or [...] place to sleep or slept in a retirement (including now)? Education Answer Date Recorded What is the highest level of school Master's degree (e.g., Isaiah Low MS, 11/02/2020 you have completed or the highest Rimma, MEd, ASSISTANT EXECUTIVE HOUSEKEEPER, KIMBERLYN) degree you have received? 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 - 01/26/2021 2:00 PM CDT Images from the original note were not included. Dental Sleep Appliance Video Please review the following instructional video related to Advancing Your Viktor Telescopic Sleep Appliance: [email or web address] For patient and family use only. Do not place link on websites or share publicly. Instructions for advancement of oral sleep appliances Please use the following chart to monitor the advancement of your SomnoDent [place] Flex appliance. Your appliance has already been [...] 1. Remove the appliance from your mouth. Mcandrews your teeth. 2. Use a soft bristle toothbrush to brush your appliance with lukewarm water. You may use mild, liquid dish soap to clean your appliance. 3. Rinse your appliance with water. 4. Store your appliance in the case provided. One time a week, use a denture shirt cleaner that is safe for plastic and metal appliances to clean your appliance. For best results, take apart your appliance and then soak it in the denture shirt cleaner for five minutes. Placing your appliance 1. Put hot water inside the case holding your appliance. Let your appliance soak in it for 10 to 15 seconds. 2. Wash your hands. Dry them with a clean towel. 3. Remove your appliance from the case. 4. To put in your appliance, armhole feller handstitching machine front of a mirror until you are [...] bite feels ???off,?? try using your bite infertility medical assistant for 5 to 10 minutes. Please be [...] with your health care provider. ? 2019 [facility] ([facility]). All rights reserved. [id number] documented in this encounter Progress Notes Courtney [...] intervals will be reviewed by my dental photographer assistant at the time of the follow-up [...]
--- OUTSIDE RECORDS SUMMARY | 2022-07-20 09:51 | XMS_ITS | Clinical Summary ---
:1950 Author Organization [facility] [place] [address] Care Team Providers Name Role Phone Mike [...] 0 Active mg tablet mouth once daily. [id number]-ma Take by mouth. 0 05/03/2021 Active ng-bosw [...] 182.5 cm (5' 11.85) 09/13/2020 8:51 AM OUTREACH COORDINATOR Body Mass Index 32.22 09/13/2020 8:51 AM OUTREACH COORDINATOR Plan of Treatment Upcoming Encounters Date Type Specialty Care Team Description 09/13/2022 Office Visit Valerie Aragon her MD [facility] [address] [place] [address] [place] [address] (Wo rk) Health Maintenance Due Date Last [...] 07/05/2022 11/18/2009, 11/18/2009, 10/01/2007 Tdap Completed 05/30/2009 Results Not on filefrom Last 3 Months Insurance Payer Benefit Plan / Subscriber ID Effective Dates Phone Addre ss Type Group MEDICARE PART B MEDICARE PART B [id number] 2015-Present ATTN: CLAIMS - HB USE ONLY HB ONLY [address] [place] [address] MEDICA MR MEDICA PRIME [id number] 2019-Present [address] [address] [place] [address] MEDICA MEDICA PRIME [id number] 2019-Present [address] [address] [place] [address] Advance Directives Documents on File Type Date Recorded Patient Small Animal Veterinarian Explanati on Power of Mathematics Education Professor 12/08/2015 12/08/2015 Healthcare Directive 12/08/2015 12/08/2015 Latest Code Status on File Code Status Date Activated Date Inactivated Comments Full Code 07/15/2020 1:27 PM 07/15/2020 8:08 PM Code Status Discussion: Not Discussed Care Teams Latex Fashions Designer Relationship Specialty Start Date End Date Mike Higginbotham MD PCP - General 09/23/151999 [place] [address]
--- OUTSIDE RECORDS SUMMARY | 2022-07-20 09:51 | XMS_ITS | Encounter Summary ---
:1950 Author Organization [facility] Address [address] [place] [address] Care Team Providers Name Role Phone Unavailable Primary Care Provider Unavailable Reason for Visit Reason Onset Date Comments Testing For Upper Respiratory Virus Symptoms 01/23/2021 Encounter Details Date Type Department Care Team Description 01/23/2021 External Outreach Department of Tony Rooney And Internal Medicine in [place], D.OAlvina (Suspected) Exposure [place], [place] [address] To COVID-19 (Primary [address] [place], [place]) [place] [phone] Social History Tobacco Use [...] or relatives? How often do you attend yarsanism or Never 2020 episcopal services? Do you belong to any clubs or No 02/25/2021 organizations such as yarsanism groups, unions, fraternal or athletic groups, or [...] place to sleep or slept in a snf (including now)? Education Answer Date Recorded What is the highest level of school Master's degree (e.g., M Devante, MS, 11/02/2020 you have completed or the highest Rimma, MEd, PAYMENT COLLECTOR, KIMBERLYN) degree you have received? 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
--- OUTSIDE RECORDS SUMMARY | 2022-07-20 09:51 | XMS_ITS | Encounter Summary ---
:1950 Author Organization [facility] Address [address] [place] [address] Care Team Providers Name Role Phone Unavailable Primary Care Provider Unavailable Encounter Details Date Type Department Care Team Description 01/23/2021 Lab Department of [facility] Courtney Wise, Contact With And (Suspected) Exposure To COVID-19; [facility], [facility] Ayan, M.S . Encounter For Preprocedural Laboratory E xamination (COVID-19) [facility], in [place] [address] [address] [place], [place] [address] [facility] [address] [place] [address] [facility] [phone] Social History Tobacco Use Types Packs/Day Years [...] do you attend sikh or Never 2020 yarsani services? Do you belong to any clubs [...] completed or the highest Rimma, MEd, SENIOR TECHNICAL EDITOR, KIMBERLYN) degree you have received? 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 Food and Drug Administ ration. Fact sheets for this EUA assay can be fo und at the following links: For Healthcare Providers: https://www.fd a.gov/media/884813/download For Patients: https://www.fda.gov/media/ 000446/download Specimen Anatomical Collection Method Collection Time Receive d Time (Source) Location / / Volume Laterality Varies 01/23/2021 8:51 AM 3:31 (Nasopharynx) CDT PM CDT Courtney Wise D.D.S., M.S. LAB MICROBIOLOGY - GENERAL O RDERABLES Performing Organization Address City/State/ZIP Code Phon e Number [facility]- [address] [place] [address] [facility] [place] [address] System in [place] [address] [facility] documented in this encounter Visit Diagnoses Diagnosis Contact With And (Suspected) Exposure To COVID-19 Encounter For Preprocedural Laboratory E xamination (COVID-19) documented in this encounter Additional Health Concerns Infection Onset Date Last Indicated Resolved Time COVID19 Pending 01/22/2021 01/23/2021 01/23/2021 8:37 PM CDT documented as of this encounter
--- OUTSIDE RECORDS SUMMARY | 2022-07-20 09:51 | XMS_ITS | Clinical Summary ---
:1950 Author Organization [facility] Address [address] [place] [address] Care Team Providers Name Role Phone Unavailable Primary Care Provider Unavailable Source Comments Patient records contain information from all sites at [facility]. For routine questions regarding patient records, call [phone] during business hours, M-F 8:00 AM - 5:00 PM Central Time. Record requests for emergency care only can be directed to [phone] at any time.[facility] Allergies No known active allergies Medications Medication [...] or relatives? How often do you attend adventist or Never 2020 congregation services? Do you belong to any clubs or No 02/25/2021 organizations such as adventist groups, unions, fraternal or athletic groups, or [...] have completed or the highest Rimma, MEd, JIG HAND, KIMBERLYN) degree you have received? 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 Last Filed Vital Signs Vital Sign Reading Time Taken Comments Blood Pressure 118/70 09/20/2020 9:34 AM HABILITATION TRAINING SPECIALIST Pulse 62 09/20/2020 9:34 AM HABILITATION TRAINING SPECIALIST Temperature - - Respiratory Rate - - Oxygen Saturation - - Inhaled Oxygen Concentration - - Weight 110 kg (242 lb 1 oz) 09/20/2020 9:34 AM HABILITATION TRAINING SPECIALIST Height 184.5 cm (6' 0.64) 09/20/2020 9:34 AM HABILITATION TRAINING SPECIALIST Body Mass Index 32.26 09/20/2020 9:34 AM HABILITATION TRAINING SPECIALIST Plan of Treatment Health Maintenance Due Date [...] ype Group Dates MEDICARE MEDICARE A AND [id number] 2015-Prese [address] [place] [address] MEDICA MEDICA PRIME [id number] 2019-Prese [phone] [address] [place] [address]
--- OUTSIDE RECORDS SUMMARY | 2022-07-20 09:52 | XMS_ITS | Encounter Summary ---
:[address] [facility] Address [address] [place] [address] Care Team Providers Name Role Phone Unavailable Primary Care Provider Unavailable Encounter Details Date Type Department Care Team Description 08/10/2020 Clinical Communication Division of Pulmonary Georgi funes, Medicine in [place], Isaiah Moreira [place] [address] [address] [facility] [address] [place] [address] [phone] Social History Tobacco Use Types Packs/Day Years [...] do you attend denominational or Never 2020 amish services? Do you belong to any clubs [...] place to sleep or slept in a fdc (including now)? 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 Is the patient requesting a COVID test only or other appointments? Other Appointments 2. Have you tested positive for COVID-19 in the last 30 days or do you have a pending COVID-19 test because you had symptoms? No, had a test at [facility] 2 weeks ago and it [...] 90 days? no Route reply to: [facility] Scheduling Contact Number: [phone] documented in this encounter Plan of Treatment Not on filedocumented as of this encounter Visit Diagnoses Not on filedocumented in this encounter
--- OUTSIDE RECORDS SUMMARY | 2022-07-20 09:52 | XMS_ITS | Encounter Summary ---
:1950 Author Organization [facility] Address [address] [place] [address] Care Team Providers Name Role Phone Unavailable Primary Care Provider Unavailable Reason for Referral Outpatient (Routine) - Closed Specialty Diagnoses / Procedures Referred By Contact Refer red To Contact Dentistry / Dental Diagnoses Apnea Sleep Obstructive [facility] Specialties Tonya Hare M.D. 200 [place] [address] Referral ID Status Reason Start Date Expiration Date Visits Requ ested Visits Authorized [id number] Closed 09/20/2020 09/20/2021 1 1 E EMBALMER Reason for Visit Outpatient (Routine) - Closed Specialty Diagnoses / Procedures Referred By Contact Refer red To Contact Sleep Medicine Diagnoses Apnea Sleep Obstructive Mike Higginbotham [place] M.D. [address] [place] [address] Referral ID Status Reason Start Date Expiration Date Visits Requ ested Visits Authorized [id number] Closed 07/20/2020 07/20/2021 1 1 Encounter Details Date Type Department Care Team Description 09/20/2020 Comprehensive Visit [facility] Marshall Mcmullen ea Sleep Obstructive (Primary Dx); Medicine in y, Tonya Hare, Atrial Fibrilla tion (HCC) [place], [place] [facility] 200 [place] [phone] Social History Tobacco Use Types Packs/Day Years [...] you attend latter day or Never 2020 druze services? Do you belong to any clubs [...] place to sleep or slept in a chcf (including now)? 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 Holstein Sleepiness Scale is 3. He does not [...] reviewed a download from his machine from [phone]. He is set at a pressure of [...] with our sleep center. Tonya Maldonado MD Cashier And Waiter/Waitress Industrial Nurse Pulmonary/Sleep Medicine #[id number] 45 minutes were spent in the care and coordination of this patient visit with greater than 50% spentin ohhc-da-scen counseling. PATIENT EDUCATION Ready to learn, no apparent learning barriers were identified; learning preferences include listening. Explained diagnosis and treatment plan; patient expressed understanding of the content. E EMBALMER documented in this encounter Plan of Treatment Scheduled Referrals Name Type Priority Associated Diagnoses Order S [facility] Dental Specialties - Outpatient Referral Routine Apnea Sleep Expected: Sleep medicine Obstructive 09/20/2020 consult (clinic) (Approximat e), Expires: 09/20/2023 documented as of this encounter Visit Diagnoses Diagnosis Apnea Sleep Obstructive - Primary Atrial Fibrillation (HCC) documented in this encounter
--- OUTSIDE RECORDS SUMMARY | 2022-07-20 09:52 | XMS_ITS | Encounter Summary ---
:1950 Author Organization [facility] Address [address] [place] [address] Care Team Providers Name Role Phone Unavailable Primary Care Provider Unavailable Reason for Visit Outpatient (Routine) - Closed Specialty Diagnoses / Procedures Referred By Contact Refer red To Contact Dentistry / Dental Diagnoses Apnea Sleep Obstructive [facility] Specialties Tonya Hare M.D. [address] [place] [address] Referral ID Status Reason Start Date Expiration Date Visits Requ ested Visits Authorized [id number] Closed 09/20/2020 09/20/2021 1 1 Encounter Details Date Type Department Care Team Description 11/09/2020 Telemedicine Department of Dental Frandy, Courtney, Apnea S leep Specialties in [place], M.S. Obstructive [place], [place] [address] [facility] [address] [place] [phone] [phone] Social History Tobacco Use Types Packs/Day Years [...] many times do you More than three avnia es a week 02/25/2021 talk on the phone with family, friends, or neighbors? How often do you get together with friends More than three t imes a week 02/25/2021 or relatives? How often do you attend temple or Never 2020 mu-ism services? Do you belong to any clubs or No 02/25/2021 organizations such as temple groups, unions, fraternal or athletic groups, or [...] have completed or the highest Rimma, MEd, ACCIDENT INVESTIGATOR, KIMBERLYN) degree you have received? 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 - 11/09/2020 3:00 PM CST Today's visit was completed as a video telemedicine visit, from the Department of Dental Specialties, [place], [place], by Dr. Courtney Wise, by contacting Mr. Huang at his home. SUBJECTIVE REASON FOR CONSULT Mr. Kishor Huang Jr. is a 70 y.o. male patient referred by Dr. Raul Lynn from [facility], in consideration [...] Counselling and coordinating care > 50% time. LATORY NURSE documented in this encounter Plan of Treatment Not on filedocumented as of this encounter Visit Diagnoses Diagnosis Apnea Sleep Obstructive documented in this encounter
--- OUTSIDE RECORDS SUMMARY | 2022-07-20 09:52 | XMS_ITS | Encounter Summary ---
:1950 Author Organization [facility] Address [address] [place] [address] Care Team Providers Name Role Phone Unavailable Primary Care Provider Unavailable Reason for Referral Outpatient (Routine) - Closed Specialty Diagnoses / Procedures Referred By Contact Refer red To Contact Dermatology Diagnoses Obstructive Sleep Apnea Adult Courtney Wise D.D.S., M.S. [facility] Procedures Photography - Medical [address] [place] [address] Referral ID Status Reason Start Date Expiration Date Visits Requ ested Visits Authorized [id number] Closed 12/20/2020 12/20/2021 1 1 OR DEVOPS ENGINEER Reason for Visit Reason Comments Dental Sleep Medicine Consultation PES Encounter Details Date Type Department Care Team Description 12/20/2020 Comprehensive Visit Department of Yareli Wise tinicki Sleep Apnea Adult (Primary Dx); Dental Specialties Courtney, Articular Disc Disorder Of Right [facility] [address] [facility] [address] [facility] [address] [facility] [phone] [place] [phone] Social History Tobacco Use Types Packs/Day Years [...] or relatives? How often do you attend shinto or Never 2020 episcopal services? Do you belong to any clubs or No 02/25/2021 organizations such as shinto groups, unions, fraternal or athletic groups, or [...] place to sleep or slept in a custodial (including now)? Education Answer Date Recorded What is the highest level of school Master's degree (e.g., M Devante, MS, 11/02/2020 you have completed or the highest Rimma, MEd, INPATIENT PHARMACIST, KIMBERLYN) degree you have received? 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 - 12/20/2020 10:00 AM CST SUBJECTIVE REASON FOR CONSULT Mr. Kishor Huang Jr. is a 70 y.o. male patient referred by Dr. Raul Lynn from [facility] for Sleep Medicine, in consideration [...] accommodated that is most risk-aversive for the synagogue's prognosis. After the initial fitting and establishing [...] to +5. Gauge position 0. A SomnoDent [place] Flex will be ordered and inserted at next visit. 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
--- OUTSIDE RECORDS SUMMARY | 2022-07-20 09:52 | XMS_ITS | Encounter Summary ---
:1950 Author Organization [facility] Address [address] [place] [address] Care Team Providers Name Role Phone Unavailable Primary Care Provider Unavailable Encounter Details Date Type Department Care Team Description 07/08/2019 [facility] Remarco, Mckeon Fibrillation Atrial AND DERECK Trammell M.D. (HCC) (Primary Dx) 1999 [facility] [address] [place] [id number] [phone] Social History Tobacco Use Types Packs/Day Years [...] or relatives? How often do you attend catholic or Never 2020 gnosticist services? Do you belong to any clubs or No 02/25/2021 organizations such as catholic groups, unions, fraternal or athletic groups, or [...] place to sleep or slept in a correction (including now)? 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
--- OUTSIDE RECORDS SUMMARY | 2022-07-20 09:52 | XMS_ITS | Encounter Summary ---
:1950 Author Organization [facility] Address [address] [place] [id number] Care Team Providers Name Role Phone Unavailable Primary Care Provider Unavailable Reason for Referral Outpatient (Routine) - Closed Specialty Diagnoses / Procedures Referred By Contact Refer red To Contact Sleep Medicine Diagnoses Apnea Sleep Obstructive Mike Higginbotham [place] M.D. [address] [place] [address] Referral ID Status Reason Start Date Expiration Date Visits Requ ested Visits Authorized [id number] Closed 07/20/2020 07/20/2021 1 1 Encounter Details Date Type Department Care Team Description 07/20/2020 [facility] Mike Higginbotham Apnea Sleep AND CLINICS Yeyo Trammell Obstructive (Primary 1999 [facility] [address] [facility] [place]) [place] [address] [place] [phone] Social History Tobacco Use Types Packs/Day Years [...] or relatives? How often do you attend oriental orthodox or Never 2020 faith services? 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
== END 2022-07-20 09:49 | disposition home or self-care (01) ==
LOC: RAD 09:49
PROVIDERS: PCP Internal Medicine; Visit Provider Internal Medicine
DX: R60.9 Edema, unspecified (principal)
CPT/HCPCS: 93306

== ENCOUNTER 2023-03-06 09:48 | Outpatient (CLI) | payer MEDICARE, OTHER, SELFPAY | END 2023-03-06 09:49 | disposition home or self-care (01) | LOC: NFLDREF 03-07 11:31 | PROVIDERS: PCP Internal Medicine; Referring Provider Internal Medicine; Visit Provider Internal Medicine | DX: F41.9 Anxiety disorder, unspecified (principal); E78.5 Hyperlipidemia, unspecified; I48.0 Paroxysmal atrial fibrillation; Z12.5 Encounter for screening for malignant neoplasm of prostate; M65.30 Trigger finger, unspecified finger; Z23 Encounter for immunization; K21.9 Gastro-esophageal reflux disease without esophagitis; Z98.890 Other specified postprocedural states; G47.62 Sleep related leg cramps | CPT/HCPCS: 80053; 83690; 84153 ==

== ENCOUNTER 2023-09-24 09:38 | Outpatient (CLI) | payer MEDICARE, OTHER, SELFPAY | END 2023-09-24 09:39 | disposition home or self-care (01) | PROVIDERS: PCP Internal Medicine; Visit Provider Internal Medicine | DX: R53.83 Other fatigue (principal) | CPT/HCPCS: 80048; 84443 ==

== ENCOUNTER 2023-10-01 13:49 | Outpatient (CLI) | payer MEDICARE, OTHER, SELFPAY ==
[2023-10-01] MEDS: PERFLUTREN LIPID MICROSPHERES 2 ML VIAL IV (14:41)
[2023-10-01 15:10] VITALS: BP 158/84; PULSE 76
--- NOTE | 2023-10-01 17:00 | W.PM.STED ---
Stress Test Note Date Date of test: 10/01/23 Providers Primary care provider: Mike Higginbotham Stress test physician: Les Patterson Stress Test Note Stress test ordered: Stress Echo Indication for test: shortness of breath, chest pain Results discussion: Patient is a very nice gentleman who presents for the above test after discussion the risks benefits side effects he would like to proceed pretest EKG shows atrial fibrillation, he does have her right bundle-branch block configuration. First-degree block is noted. Occasional PVCs are noted. Following standard Quentin protocol patient is exercised for a total time of 5 minutes 31 seconds, metabolic equivalent of 7.1 Mets with a maximum heart rate of 140 which is 112% of the maximum. He had no chest pain, test is terminated because of fulfillment of protocol, review of the tracing shows no evidence of EKG evidence of ischemia. Subjectively negative Impression: Negative electrographic portion of stress echo, atrial fibrillation Follow up suggested: Await echo images clinical correlation with these be needed. Patient left this testing facility in excellent condition,
== END 2023-10-01 13:50 | disposition home or self-care (01) ==
LOC: STRESS 13:50
PROVIDERS: PCP Internal Medicine; Visit Provider Family Medicine
DX: R07.89 Other chest pain (principal); I48.91 Unspecified atrial fibrillation; R06.02 Shortness of breath; R53.83 Other fatigue
CPT/HCPCS: 93016; 93325; 93351; Q9957

== ENCOUNTER 2024-03-20 07:20 | Outpatient (CLI) | payer MEDICARE, OTHER, SELFPAY ==
--- OUTSIDE RECORDS SUMMARY | 2024-03-20 07:22 | XMS_ITS | Clinical Summary ---
Author Name Unknown Organization [facility] Address [place], [place] [address] Care Team Providers Care Varnisher Apprentice Name Role Phone Mike Higginbotham MD Primary Care Provider Allergies Active Allergy Reactions Criticality Noted Date Comments Cefuroxime Rash 03/14/2010 Medications Medication Sig Dispensed Refills Start Date End Date Status simvastatin (ZOCOR) 10 mg tablet Take 1 tablet by mouth at bedtime. 0 10/03/2015 Active clonazePAM (KLONOPIN) 1 mg tablet Take 1 tablet by mouth once daily. 0 09/13/2020 Active Active Problems Problem Noted Date Diagnosed Date Paroxysmal atrial fibrillation 07/17/2019 Atrial flutter 03/06/2019 JIN 05/17/2008 AHI-11, positional 01/09/2018 Lumbar facet arthropathy 02/01/2016 Bulging lumbar disc 10/03/2015 Lumbar spinal stenosis 10/03/2015 Lumbar radicular pain 10/03/2015 Tear of medial meniscus of knee 05/24/2009 Knee pain 05/23/2009 Resolved Problems Problem Noted Date Diagnosed Date Resolved Date Sleep Apnea AHI-11 05/17/2008 06/14/2008 01/09/2018 Encounters Date Type Department Care Team Description 03/12/2024 Telephone [facility] [address] [place] [address] Bolivar Aragon MD Results (zio) 02/17/2024 7:50 AM CDT - 02/17/2024 11:59 PM CDT Hospital Encounter [facility] [address] [place] [address] Bolivar Aragon MD Paroxysmal atrial fibrillation (HC) from Last 3 Months Immunizations Name Administration Dates Next Due Influenza A (H1N1), Inactivated (Age >=3 Years) 11/18/2009 Influenza, IIV3 (Age >=3 years) 11/18/2009,10/01 Tdap 05/30/2009 Family History Medical History Relation Name Comments Heart Disease Father aneurysm of co ronary arteries Hypertension Mother Relation Name Status Comments Father Mother Social History Tobacco Use Types Packs/Day Years Used Date Smoking Tobacco: Never Smokeless Tobacco: Never Tobacco Cessation:Counseling Given: Yes Alcohol Use Standard Drinks/Week Comments Yes 0 (1 standard drink = 0.6 oz pur e alcohol) rare Social Connections Answer Date Recorded Frequency of Communication with Friends and Fami ly Not on file 11/04/2021 Financial Resource Strain Answer Date R ecorded Difficulty of Paying Living Expenses Not on file 11/04/2021 Difficulty of Paying Living Expenses Not on file 11/04/2021 Sex and Gender Information Value Date Recorded Sex Assigned at Not on file Gender Identity Not on file Sexual Orientation Lesbian or West 06/05/2021 9: 54 AM CDT Obstetrics History Last Filed Vital Signs Vital Sign Reading Time Taken Comments Blood Pressure 121/75 02/18/2023 4:02 PM CDT Pulse 67 02/18/2023 4:02 PM CDT Temperature 36.7 ??C (98 ??F) 10/18/2022 6:58 AM AUDIO VISUAL TECHNICIAN Respiratory Rate 14 10/18/2022 6:58 AM AUDIO VISUAL TECHNICIAN Oxygen Saturation 95% 02/18/2023 4:02 PM CDT Inhaled Oxygen Concentration - - Weight 111.6 kg (246 lb) 02/18/2023 4:02 PM CDT Height 185.4 cm (6' 1) 02/18/2023 4:02 PM CDT Body Mass Index 32.46 02/18/2023 4:02 PM CDT Plan of Treatment Upcoming Encounters Date Type Department Care Team (Late st Contact Info) Description 04/13/2024 11:00 AM CDT Office Visit [facility] [address] [place] [address] Bolivar Aragon MD [address] [place] [address] Health Maintenance Due Date Last Done Comments Depression screening for age 12+ 1962 Hepatitis C screening for ag e 18-79 1968 Colonoscopy through age 75 1995 Lipids for age 45-75 1995 Zoster (shingles) series for age 50+ (1 of 2) 2000 Medicare Wellness for age 65+ 2015 Pneumococcal series for age 65+ (1 of 1 - PCV) 2015 Tetanus booster 05/30/2019 05/30/2009 BMI (ht and wt on same day) for age 18+ 02/19/2024 02/18/2023, 09/13/2022, 09/13/2020, Additional history exists Influenza for age 65+ 07/05/2024 11/18/2009 , 11/18/2009, 10/01/2007 Tdap Completed 05/30/2009 COVID-19 vaccine series Completed 07/30/20, 03/30/2023, 07/18/2022, Additional history exists Procedures Procedure Name Priority Date/Time Associated Diagnosis Comments EXTENDED HOLTER Routine 03/12/2024 Paroxysmal atrial fibrillation (HC) from Last 3 Months Results * ZIO PATCH XT - weekly to monthly symptoms. Specifiy duration 3 days, 1 week, or 2 weeks (03/12/2024) Bolivar Aragon MD CARDIAC SER VICES ORD from Last 3 Months Advance Directives Documents on File Type Date Recorded Patient Stockroom Coordinator Expl anation Power of Bisque Placer 12/08/2015 12/08/2015 Healthcare Directive 12/08/2015 016 * Full Code (Latest Code Status on File) Date Activated Date Inactivated Comments 10/17/2022 4:54 PM 10/18/2022 2:30 PM Question Answer Comments Code Status Discussion: Other * Full Code Date Activated Date Inactivated Comments 07/15/2020 1:27 PM 07/15/2020 8:08 PM Question Answer Comments Code Status Discussion: Not Discussed Care Teams Varnisher Apprentice Relationship Specialty Start Date End Date Mike Higginbotham MD [address] [place] [address] PCP - General 09/23/15
--- NOTE | 2024-03-20 08:03 | W.ANESCHARGE ---
Anesthesia Charges Start Date/Time Anesthesia Start Date: 03/20/24 Anesthesia Start Time: 08:15 Stop Date/Time Anesthesia Stop Date: 03/20/24 Anesthesia Stop Time: 08:46 Summary Extremes of Age - Over 70 or under 1: MDA
--- NOTE | 2024-03-20 08:49 | W.ANESCHARGE ---
Anesthesia Charges Start Date/Time Anesthesia Start Date: 03/20/24 Anesthesia Start Time: 08:15 Stop Date/Time Anesthesia Stop Date: 03/20/24 Anesthesia Stop Time: 08:46
== END 2024-03-20 07:21 | disposition home or self-care (01) ==
PROVIDERS: PCP Internal Medicine; Visit Provider Internal Medicine
DX: K63.5 Polyp of colon (principal); K62.1 Rectal polyp; K64.8 Other hemorrhoids; Z86.010 Personal history of colon polyps
CPT/HCPCS: 00811; 45380; 88305; 99100; J2704

== ENCOUNTER 2024-03-23 14:49 | Outpatient (CLI) | payer MEDICARE, OTHER, SELFPAY ==
--- OUTSIDE RECORDS SUMMARY | 2024-03-23 14:53 | XMS_ITS | Clinical Summary ---
Author Name Unknown Organization [facility] Address [place], [place] [address] Care Team Providers Care Farmworker Grain Name Role Phone Mike Higginbotham MD Primary [...] Encounters Date Type Department Care Team Description 03/20/2024 Lab Requisition [facility] [phone] Mike Higginbotham MD [facility] [address] [facility] [address] [place] [address] Bolivar Aragon MD Results (zio) 02/17/2024 7:50 AM CDT - 02/17/2024 11:59 PM CDT Hospital Encounter [facility] [address] [facility] [place] [id number] Bolivar Aragon MD Paroxysmal atrial fibrillation (HC) [...] 36.7 ??C (98 ??F) 10/18/2022 6:58 AM TELECOMMUNICATOR Respiratory Rate 14 10/18/2022 6:58 AM TELECOMMUNICATOR Oxygen Saturation 95% 02/18/2023 4:02 PM CDT Inhaled Oxygen Concentration - - Weight 111.6 kg (246 lb) 02/18/2023 4:02 PM CDT Height 185.4 cm (6' 1) 02/18/2023 4:02 PM CDT Body Mass Index 32.46 02/18/2023 4:02 PM CDT Plan of Treatment Upcoming Encounters Date Type Department Care Team (Late st Contact Info) Description 03/23/2024 3:00 PM CDT Ancillary Procedure [facility] [address] [place] [address] 04/13/2024 11:00 AM CDT Office Visit [facility] [address] [facility] [address] [place] [address] Bolivar Aragon MD [address] [place] [address] Health Maintenance Due Date Last Done Comments [...] Tdap Completed 05/30/2009 COVID-19 vaccine series Completed 07/30/20 23, 03/30/2023, 07/18/2022, Additional history exists Procedures Procedure Name Priority Date/Time Associated Diagnosis Comments PATH TISSUE EXAM Routine 03/20/2024 8:29 AM CDT EXTENDED HOLTER Routine 03/12/2024 Paroxysmal atrial fibrillation (HC) from Last 3 Months Results * PATH TISSUE EXAM (03/20/2024 8:29 AM CDT) Case Report Pathology Report ?Case: [id number] ? Authorizing Provider: ??Mike Higginbotham MD ?Collected: ? 03/20/2024 0829 ? Ordering Location: ? [facility] ?Received: ?03/21/2024 0606 ? Pathologist: ? Miguel Luis MD ? Specimens: ?? A) - Ascending Colon Biopsy ? B) - Rectum ? 03/23/2024 10:21 AM [facility]-C ENTRAL LABORATORY Final Diagnosis A) COLON, ASCENDING, POLYPECTOMIES: 1. Tubular adenomas (4) 2. Negative for high grade dysplasia 3. Per the colonoscopy report: ?? a. Polyp sizes: 2 mm - 3 mm ?? b. Resection: Complete ?? c. Retrieval: Complete B) RECTUM, POLYPECTOMY: 1. Hyperplastic polyp 03/23/2024 10:21 AM T [facility] Comment A) We are aware of the patient now having at least 10 adenomatous polyps of the colon. If the patient has extracolonic manifestations or a family history of cancer, consideration for a referral to a genetics specialist for possible genetic testing to evaluate for a potential polyposis syndrome (attenuated familial adenomatous polyposis or MYH polyposis in particular) is reasonable as the results may have implications for both the patient and immediate family members. Reference: Jaron Mata S. When Should Patients Undergo Genetic Testing for Hereditary Colon Cancer Syndromes? Clin Gastroenterol Hepatol. 2018 Dec;16(2):181-183 . Epub 2016Sep 13. PMID: [id number]. 03/23/2024 10:21 AM CDT [facility] Clinical Information Surveillance colonoscopy 03/23/2024 10:21 AM T [facility] Gross Description A) Received in formalin are 8 calix mucosal fragments averaging 2 mm in greatest dimension, which are entirely submitted in one cassette. It is labeled with the patient's name and designated ascending colon biopsy. B) Received in formalin is a calix mucosal fragment measuring 4 mm in greatest dimension, which is entirely submitted in one cassette. It is labeled with the patient's name and designated rectum biopsy. Martin Po Fine 03/21/2024 10:20 AM 03/23/2024 10:21 AM CDT [facility] [employer] [facility] Microscopic Description The final diagnosis is based on microscopic examination of appropriate sections of all specimens. 03/23/2024 10:21 AM T [facility] [employer] [facility] Additional Information Interpreted at [facility] [employer] [facility], Central Laboratory - [address], [place] [address] 03/23/2024 10:21 AM T [facility] [employer] [facility] Other (Ascending Colon Biopsy) 03/20/2024 8:29 AM CDT 03/21/2024 6:06 AM CDT Specimen (specimen) (Rectum) 03/20/2024 8:29 AM CDT 03/21/2024 6:06 AM CDT Mike Higginbotham MD PATHOLOGY/CYTOLOGY [facility] [address] [place] [address], * ZIO PATCH XT - weekly to monthly symptoms. Specifiy duration 3 days, 1 week, or 2 weeks (03/12/2024) Bolivar Aragon MD CARDIAC SER VICES ORD from Last 3 Months Advance Directives Documents on File Type Date Recorded Patient Store Receiving Specialist Expl anation Power of Redevelopment Manager 12/08/2015 12/08/2015 Healthcare Directive 12/08/2015 016 * Full Code (Latest Code Status on File) Date Activated Date Inactivated Comments 10/17/2022 4:54 PM 10/18/2022 2:30 PM Question Answer Comments Code Status Discussion: Other * Full Code Date Activated Date Inactivated Comments 07/15/2020 1:27 PM 07/15/2020 8:08 PM Question Answer Comments Code Status Discussion: Not Discussed Care Teams Farmworker Grain Relationship Specialty Start Date End Date Mike Higginbotham MD [address] [place] [address] PCP - General 09/23/15
== END 2024-03-23 14:50 | disposition home or self-care (01) ==
LOC: RAD 14:52
PROVIDERS: PCP Internal Medicine; Visit Provider Internal Medicine
DX: I48.0 Paroxysmal atrial fibrillation (principal); I34.0 Nonrheumatic mitral (valve) insufficiency; I35.1 Nonrheumatic aortic (valve) insufficiency; I07.1 Rheumatic tricuspid insufficiency; I48.4 Atypical atrial flutter
CPT/HCPCS: 93306

== ENCOUNTER 2024-09-16 15:55 | Outpatient (CLI) | payer MEDICARE, OTHER, SELFPAY ==
--- OUTSIDE RECORDS SUMMARY | 2024-09-17 14:36 | XMS_ITS | Clinical Summary ---
Author Organization [facility] Address [place], [place] [address] Care Team Providers Care Loom Control Chain Builder Name Role Phone Mike Higginbotham MD Primary Care Provider Allergies No known active allergies Medications Medication Sig Dispensed Refills Start Date End Date Status simvastatin (ZOCOR) 10 mg tablet Take 1 tablet by mouth at bedtime. 0 10/03/2015 Active clonazePAM (KLONOPIN) 1 mg tablet Take 1 tablet by mouth once daily. 0 09/13/2020 Active escitalopram oxalate (LEXAPRO) 5 mg tablet Take 5 mg by mouth once daily in the morning. Active Active Problems Problem Noted Date Diagnosed Date Paroxysmal atrial fibrillation 07/17/2019 Atrial flutter 03/06/2019 JIN 05/17/2008 AHI-11, positional 01/09/2018 Lumbar facet arthropathy 02/01/2016 Bulging lumbar disc 10/03/2015 Lumbar spinal stenosis 10/03/2015 Lumbar radicular pain 10/03/2015 Tear of medial meniscus of knee 05/24/2009 Knee pain 05/23/2009 Resolved Problems Problem Noted Date Diagnosed Date Resolved Date Sleep Apnea AHI-11 05/17/2008 06/14/2008 01/09/2018 Immunizations Name Administration Dates Next Due Influenza [...] Sign Reading Time Taken Comments Blood Pressure 129/64 06/02/2024 1:22 PM CDT Pulse 62 06/02/2024 1:22 PM CDT Temperature 36.7 ??C (98 ??F) 10/18/2022 6:58 AM EYELET ROW MARKER Respiratory Rate 17 06/02/2024 12:25 PM CDT Oxygen Saturation 95% 06/02/2024 1:22 PM CDT Inhaled Oxygen Concentration - - Weight 112 kg (247 lb) 06/02/2024 12:25 PM CDT Height 185.4 cm (6' 1) 06/02/2024 12:25 PM CDT Body Mass Index 32.59 06/02/2024 12:25 PM CDT Plan of Treatment Health Maintenance Due Date [...] - PCV) 2015 Tetanus booster 05/30/2019 05/30/2009 COVID-19 vaccine series ( season) 2024 07/30/2023, 03/30/2023, 07/18/2022, Additional history exists Influenza for age 65+ 07/05/2024 11/18/2009 , 11/18/2009, 10/01/2007 BMI (ht and wt on same day) for age 18+ 04/13/2025 04/13/2024, 02/18/2023, 09/13/2022, Additional history exists Tdap Completed 05/30/2009 Advance Directives Documents on File Type Date Recorded Patient Script Developer Expl anation Power of Automotive Salesperson 12/08/2015 12/08/2015 Healthcare Directive 12/08/2015 016 * Full Code (Latest Code Status on File) Date Activated Date Inactivated Comments 10/17/2022 4:54 PM 10/18/2022 2:30 PM Question Answer Comments Code Status Discussion: Other * Full Code Date Activated Date Inactivated Comments 07/15/2020 1:27 PM 07/15/2020 8:08 PM Question Answer Comments Code Status Discussion: Not Discussed Care Teams Loom Control Chain Builder Relationship Specialty Start Date End Date Mike Higginbotham MD [address] [place] [address] PCP - General 09/23/15
== END 2024-09-16 15:56 | disposition home or self-care (01) ==
LOC: NFLDREF 09-17 14:35
PROVIDERS: PCP Internal Medicine; Referring Provider Internal Medicine; Visit Provider Internal Medicine
DX: E78.5 Hyperlipidemia, unspecified (principal); L29.9 Pruritus, unspecified; Z12.5 Encounter for screening for malignant neoplasm of prostate
CPT/HCPCS: 80053; 80061; G0103

== ENCOUNTER 2025-02-11 07:53 | Outpatient (CLI) | payer MEDICARE, OTHER, SELFPAY ==
--- NOTE | 2025-02-11 08:00 | CRLHL7_ITS ---
For Patients: As a result of the Cures Act, medical imaging exams and procedure reports are released immediately into your electronic medical record. You may view this report before your referring provider. If you have questions, please contact your health care provider. INDICATION: Thoracic injury. TECHNIQUE: CT of the thoracic spine without contrast. Coronal and sagittal reformats are included. COMPARISON: Thoracic spine radiographs from 12/04/2024 FINDINGS: Fractures and other acute findings: The thoracic spine is ankylosed by bulky paravertebral osteophytes, likely reflecting DISH. There is a nondisplaced fracture involving the T8-9 anterior bridging osteophyte, disc, T9 posterior superior endplate, and left-sided T9 pedicle/pars. No traumatic subluxation. There is some surrounding callus formation, suggesting subacute age. Hardware: None. Spinal alignment: Within normal limits. Significant thoracic spondylosis: No CT visualized spinal canal stenosis. Thoracic foraminal height loss and facet arthrosis with high-grade neural foraminal stenosis at T1-2 bilaterally, T2-3 bilaterally, and [id number] elsewhere. Paraspinal soft tissues and imaged lungs: A partially exophytic right renal cyst. Enlarged hyperdense gallstone within the gallbladder. IMPRESSION: 1. T8-9 chalk stick type fracture of the ankylosed spine, presumably due to DISH. The fracture does involve the posterior elements on the left. There is no traumatic subluxation. Some associated callus formation suggesting subacute age. Please note that all CT scans at this facility use dose modulation, iterative reconstruction, and/or weight-based dosing when appropriate to reduce radiation dose to as low as reasonably achievable. Dictated by Ruslan Ramirez MD @ 02/12/2025 8:15:07 AM (Electronically Signed)
== END 2025-02-11 07:54 | disposition home or self-care (01) ==
LOC: CT 07:55
PROVIDERS: PCP Internal Medicine; Visit Provider Internal Medicine
DX: S29.9XXA Unspecified injury of thorax, initial encounter (principal); S22.078A Other fracture of T9-T10 vertebra, initial encounter for closed fracture
CPT/HCPCS: 72128

== ENCOUNTER 2025-04-16 07:07 | Outpatient (CLI) | payer MEDICARE, OTHER, SELFPAY ==
--- NOTE | 2025-04-16 07:15 | CRLHL7_ITS ---
For Patients: As a result of the Century Cures Act, medical imaging exams and procedure reports are released immediately into your electronic medical record. You may view this report before your referring provider. If you have questions, please contact your health care provider. INDICATION: Mid back pain. COMPARISON: CT 02/11/2025. TECHNIQUE: Sagittal T1, T2, and STIR sequences. Axial T2/gradient sequences. FINDINGS: Midthoracic curve convex to the right. In sagittal plane, normal vertebral body and facet alignment. Better appreciated on the previous CT are multilevel ventral bridging osteophytes consistent with diffuse idiopathic skeletal hyperostosis. There is a notable fracture across the ventral osteophyte at T8-9 which appears to extend across the superior endplate of T9 and into the left T9 pedicles and pars. On the current MRI, there is associated edema within the disc space as well as the adjacent endplates of T8 and T9. There is marrow edema of the spinous process of T8 which likely secondary to underlying fracture also seen on CT. No epidural hematoma or fluid collection. No other fractures. No evidence injury. No suspicious osseous lesions. Normal cord signal. No intradural mass or lesion. Thoracic spondylosis with multilevel disc degeneration. T2-3: Disk degeneration posterior disc bulge. Mild narrowing of spinal canal. Moderate narrowing of the bilateral foramina. Mild os arthropathy. T6-7: Disc degeneration and a shallow left paracentral disc protrusion or disc osteophyte complex. No narrowing of spinal canal. No neural foraminal narrowing. No spinal canal or neural foraminal narrowing at the remaining levels of the thoracic spine. Normal paraspinal soft tissues. IMPRESSION: 1. Midthoracic curve convex to the right. 2. Abnormal signal intensity of the T8-9 disc space with marrow edema of the endplates of T8 and T9. Findings are related to the fracture better seen on previous CT. 3. No epidural hematoma or fluid collection 4. No new fractures. Normal cord signal. 5. Thoracic spondylosis 6. At T2-3, moderate narrowing of the bilateral neural foramina 7. No spinal canal or neural foraminal narrowing at the remaining levels Dictated by Michael Whyte MD @ 04/16/2025 2:36:28 PM (Electronically Signed)
--- NOTE | 2025-04-16 10:45 | CRLHL7_ITS ---
For Patients: As a result of the Century Cures Act, medical imaging exams and procedure reports are released immediately into your electronic medical record. You may view this report before your referring provider. If you have questions, please contact your health care provider. INDICATION: RUQ PAIN COMPARISON: 10/15/2011 ultrasound, CT thoracic spine 02/11/2025 TECHNIQUE: Real time bourne scale imaging and color Doppler analysis was performed of the right upper quadrant. FINDINGS: Liver echotexture is diffusely coarsened/increased. Liver measures 17.7 cm. Hypoechoic structure within the left hepatic lobe measures 7 x 4 x 7 millimeters. There is a normal appearance of the hepatic IVC and proximal abdominal aorta. There is no evidence of ascites. Large echogenic/calcified stone in the gallbladder again noted. The gallbladder wall measures 3 mm in thickness. The common bile duct is of normal size and measures 5 mm in diameter at the level of the pradeep hepatis. The pancreas appears normal. There is no evidence of a stone or hydronephrosis within the right kidney. The right kidney measures 12.4 cm in length. Simple cyst right kidney measures 4.0 x 3.3 x 3.6 cm. IMPRESSION: Hepatomegaly with hepatic steatosis. Indeterminate 7 millimeter hypodense lesion within the left hepatic lobe, likely benign. Chronic cholelithiasis. Exophytic right renal cyst. Dictated by Janes Rosario MD @ 04/16/2025 3:06:11 PM (Electronically Signed)
== END 2025-04-16 07:08 | disposition home or self-care (01) ==
LOC: MRI 07:08
PROVIDERS: PCP Internal Medicine; Visit Provider Internal Medicine
DX: R10.11 Right upper quadrant pain (principal); R16.0 Hepatomegaly, not elsewhere classified; K76.0 Fatty (change of) liver, not elsewhere classified; K76.9 Liver disease, unspecified; K80.20 Calculus of gallbladder without cholecystitis without obstruction; N28.1 Cyst of kidney, acquired; M54.9 Dorsalgia, unspecified; M47.894 Other spondylosis, thoracic region; M51.24 Other intervertebral disc displacement, thoracic region; S22.07 Fracture of T9-T10 vertebra; S29.9XXA Unspecified injury of thorax, initial encounter
CPT/HCPCS: 72146; 76705